=== PATIENT | female | born 1955 | race Caucasian/White ===

== ENCOUNTER 2018-06-02 20:55 | Observation (INO) ==
--- NOTE | 2018-06-02 21:46 | ED ---
[facility] General Chief complaint: Abdominal Pain Stated complaint: N/V/Abd pain Time Seen by Provider: 06/02/18 21:31 Source: patient Mode of arrival: ambulatory Limitations: no limitations History of Present Illness HPI narrative: 63yo F with no no significant PMH presents to the ED with c/o epigastric abdominal around 4pm today. Said she was at a birthday republic[employer] and was eating junk food. Associated with nausea and vomiting. Pain is intermittent, nonradiating and sharp. Denies any fever, chest pain, sob, diarrhea, dysuria, hematuria, focal weakness or numbness. Related Data Home Medications Medication Instructions Recorded Confirmed No Known Home Medications 06/02/18 06/02/18 Allergies Allergy/AdvReac Type Severity Reaction Status Date / Time No Known Allergies Allergy Unverified 06/02/18 21:16 Review of Systems ROS Unobtainable All other systems reviewed negative except as stated in HPI [facility] Medical History Medical History Patient denies medical problems (Acute) GERD (gastroesophageal reflux disease) (Acute) Social History Social History Second Hand Smoke Exposure: Yes Smoking Status: Current some day smoker Tobacco Type: Cigarettes How Often Do You Have a Drink Containing Alcohol: 2 to 4 times a month Recent Travel in [facility] within the Last 8 Weeks: No Recent Out of Country Travel within the Last 8 Weeks: No Immunization History Tetanus Immunization: Unsure Hx Influenza Vaccine This Season: No Exam Narrative Exam Narrative: GENERAL: 63yo F in mild distress. SKIN: Focused skin assessment warm/dry. HEAD: Atraumatic. Normocephalic. EYES: Pupils equal and round. No scleral icterus. No injection or drainage. ENT: No nasal bleeding or discharge. Mucous membranes pink and moist. NECK: Trachea midline. No JVD. CARDIOVASCULAR: Regular rate and rhythm. No murmur appreciated. RESPIRATORY: No accessory muscle use. Clear to auscultation. Breath sounds equal bilaterally. GASTROINTESTINAL: Abdomen soft, +TTP epigastric region. No rebound tenderness or guarding. MUSCULOSKELETAL: No obvious deformities. No clubbing. No cyanosis. No edema. NEUROLOGICAL: Awake and alert. No obvious cranial nerve deficits. Motor grossly within normal limits. Normal speech. PSYCHIATRIC: Appropriate mood and affect; insight and judgment normal. Course Initial Documented Vital Signs Temperature 97.8 F 06/02/18 21:16 Pulse Rate 67 06/02/18 21:16 Respiratory Rate 16 06/02/18 21:16 Blood Pressure 109/76 06/02/18 21:16 Pulse Oximetry 98 06/02/18 21:16 Last Documented Vital Signs Temperature 97.8 F 06/02/18 21:16 Pulse Rate 78 06/03/18 01:06 Respiratory Rate 16 06/03/18 01:06 Blood Pressure 98/59 L 06/03/18 01:06 Pulse Oximetry 99 06/03/18 01:06 Medical Decision Making MDM Narrative Medical decision making narrative: 63yo F with epigastric abdominal pain and vomiting that started this afternoon. Pain is localized in epigastric region. Protonix did not help so pt given morphine which helped with pain. Labs reviewed, WBC 11.7. AST/ALT elevated at 289/146. Normal bilirubin. CT a/p showed moderate severity diffuse intrahepatic and extrahepatic biliary ductal dilatation. No mass identified. No calcified gallstones. Common duct is diffusely prominent measuring 11mm proximally and distally. Gallbladder is collapse. Pt will need GI consult. Discussed with Dr. Garrett and accepted to her service. Differential Diagnosis Differential Diagnosis: Gastritis vs. pancreatitis vs. peptic ulcer disease vs. atypical ACS Lab Data Result diagrams: 06/02/18 21:40 06/02/18 21:40 Lab Results 06/02/18 06/02/18 Range/Units 21:40 21:40 CBC w Diff Auto diff final WBC 11.7 H (4.0-11.0) th/mm3 RBC 4.73 (4.00-5.30) mil/mm3 Hgb 14.4 (11.6-15.3) gm/dL Hct 45.4 (35.0-46.0) % MCV 95.9 (80.0-100.0) fL MCH 30.4 (27.0-34.0) pg MCHC 31.7 L (32.0-36.0) % RDW 12.6 (11.6-17.2) % Plt Count 158 (150-450) th/mm3 MPV 10.9 (7.0-11.0) fL Neut % (Auto) 68.2 (16.0-70.0) % Lymph % (Auto) 16.1 (9.0-44.0) % [place] % (Auto) 11.6 H (0.0-8.0) % Eos % (Auto) 1.5 (0.0-4.0) % Baso % (Auto) 2.6 H (0.0-2.0) % Neut # (Auto) 7.9 H (1.8-7.7) th/mm3 Lymph # (Auto) 1.9 (1.0-4.8) th/mm3 [place] # (Auto) 1.4 H (0.0-0.9) th/mm3 Eos # (Auto) 0.2 (0.0-0.4) th/mm3 Baso # (Auto) 0.3 H (0.0-0.2) th/mm3 WBC Differential . Differential Comment . Sodium 142 (136-145) meq/L Potassium 3.5 (3.5-5.1) meq/L Chloride 106 (98-107) meq/L Carbon Dioxide 27.7 (21.0-32.0) meq/L Anion Gap 8 (5-15) meq/L BUN 16 (7-18) mg/dL Creatinine 0.76 (0.50-1.00) mg/dL Estimated GFR 77 L (>89) mL/min Random Glucose 150 H (74-106) mg/dL Calcium 8.7 (8.5-10.1) mg/dL Total Bilirubin 0.5 (0.2-1.0) mg/dL AST 289 H (15-37) U/L ALT 146 H (10-53) U/L Alkaline Phosphatase 85 (45-117) U/L Total Protein 7.4 (6.4-8.2) g/dL Albumin 3.7 (3.4-5.0) g/dL Lipase 199 (73-393) U/L Imaging Data Radiologist's impression: ITS Impressions Abdomen/Pelvis CT 06/02/18 22:38 CONCLUSION: 1. Moderate severity diffuse intrahepatic and extrahepatic biliary ductal dilatation. No mass identified. No calcified gallstones identified. 2. Mild hepatic steatosis. 3. Lumbar spine facet arthrosis. ECG Data EKG Prior to Arrival: No Attestation: I personally reviewed and interpreted this ECG as follows: Interpretation: NSR 65bpm. Normal axis. No ST segment elevation or depression. Discharge Plan Discharge Disposition Patient Disposition: 30 Still Patient Discharge Condition Condition: Stable Physicians Team ED Provider: Mary Frost Primary Care Provider: Primary Care Chad,No Attending Provider: Marilyn Garrett Other Providers: Airam Peñaloza Status ED Status: Admitted Observation Patient
[2018-06-02 22:12] LABS: Baso # (Auto) 0.3 th/mm3 (0.0-0.2); Baso % (Auto) 2.6 % (0.0-2.0); Eos # (Auto) 0.2 th/mm3 (0.0-0.4); Eos % (Auto) 1.5 % (0.0-4.0); Hematocrit 45.4 % (35.0-46.0); Hemoglobin 14.4 gm/dL (11.6-15.3); Lymph # (Auto) 1.9 th/mm3 (1.0-4.8); Lymph % (Auto) 16.1 % (9.0-44.0); Mean Corpuscular HGB Conc 31.7 % (32.0-36.0); Mean Corpuscular Hemoglobin 30.4 pg (27.0-34.0); Mean Corpuscular Volume 95.9 fL (80.0-100.0); Mean Platelet Volume 10.9 fL (7.0-11.0); Mono # (Auto) 1.4 th/mm3 (0.0-0.9); Mono % (Auto) 11.6 % (0.0-8.0); Neut # (Auto) 7.9 th/mm3 (1.8-7.7); Neut % (Auto) 68.2 % (16.0-70.0); Platelet Count 158 th/mm3 (150-450); Red Blood Count 4.73 mil/mm3 (4.00-5.30); Red Cell Distribution Width 12.6 % (11.6-17.2); White Blood Count 11.7 th/mm3 (4.0-11.0)
[2018-06-02 22:16] LABS: Chloride 106 meq/L (98-107); Potassium 3.5 meq/L (3.5-5.1); Sodium 142 meq/L (136-145)
[2018-06-02 22:19] LABS: Albumin 3.7 g/dL (3.4-5.0); Calcium 8.7 mg/dL (8.5-10.1); Glucose,Random 150 mg/dL (74-106)
[2018-06-02 22:20] LABS: Anion Gap 8 meq/L (5-15); Blood Urea Nitrogen 16 mg/dL (7-18); Carbon Dioxide 27.7 meq/L (21.0-32.0); Lipase 199 U/L (73-393)
[2018-06-02 22:23] LABS: Alanine Aminotransferase 146 U/L (10-53); Aspartate Aminotransferase 289 U/L (15-37); Glomerular Filtration Rate 77 mL/min (>89)
[2018-06-02 22:24] LABS: Total Protein 7.4 g/dL (6.4-8.2)
[2018-06-02 22:25] LABS: Alkaline Phosphatase 85 U/L (45-117)
[2018-06-02] MEDS ORDERED: Morphine Inj 4 MG/ML Vial IV.PUSH ONE (22:38)
--- NOTE | 2018-06-02 23:04 | ECG ---
Date Performed: 06/02/2018 Time Performed: 21:45:39 PTAGE: 63 years EKG: Sinus rhythm NORMAL ECG PREVIOUS TRACING : 04/23/2001 14.37 No significant change from previous tracing noted. DOCTOR: Dave Cast Interpretating Date/Time 06/02/2018 23:03:09
--- NOTE | 2018-06-02 23:43 | CT ---
EXAM DATE: 06/02/2018 11:06 PM EDT AGE/SEX: 63 years / Female INDICATIONS: Epigastric pain with nausea and vomiting. CLINICAL DATA: This is the patient's initial encounter. Patient reports that signs and symptoms have been present for 1 day and indicates a pain score of 3/10. MEDICAL/SURGICAL HISTORY: Gastroesophageal reflux disease. None. ORAL CONTRAST: No oral contrast ingested. RADIATION DOSE: 6.90 CTDI (mGy) COMPARISON: No prior exams available for comparison. TECHNIQUE: Multiple contiguous axial images were obtained through the abdomen and pelvis following b olus infusion of 86 ml Omnipaque 350 (iohexol) nonionic water-soluble contrast as a single exam dos e. No oral contrast ingested. Using automated exposure control and adjustment of the mA and/or kV ac cording to patient size, radiation dose was kept as low as reasonably achievable to obtain optimal di agnostic quality images. DICOM format image data is available electronically for review and comparis on. FINDINGS: Lower Lungs: The visualized lower lungs are clear. Liver: Evidence of mild hepatic steatosis. No focal mass identified. Mild diffuse intrahepatic biliar y ductal dilatation. Common duct is diffusely prominent measuring 11 mm proximally and distally. Gall bladder is collapsed. Spleen: Homogeneous density without enlargement. Pancreas: Unremarkable without mass or calcification. Kidneys: Normal in size and shape. No evidence of mass or hydronephrosis. Adrenal Glands: Unremarkable. Aorta: The aorta and proximal iliac vessels are grossly unremarkable without aneurysmal dilation. Bowel/Mesentery: No evidence of bowel dilatation. No free air or free fluid. Appendix within normal limits. Abdominal Wall: Intact. Retroperitoneum: No evidence of adenopathy in the retrocrural, para-aortic, or deep pelvic regions. Bladder: Contours are smooth. Reproductive Organs: No abnormal masses or calcifications seen. Inguinal: The inguinal region is unremarkable without evidence of adenopathy. Bony Structures: Prominent facet arthrosis of the lower lumbar spine. CONCLUSION: 1. Moderate severity diffuse intrahepatic and extrahepatic biliary ductal dilatation. No mass identi fied. No calcified gallstones identified. 2. Mild hepatic steatosis. 3. Lumbar spine facet arthrosis. Electronically signed by: Yahir Romano MD 06/02/2018 11:41 PM EDT
[2018-06-03] MEDS ORDERED: Bisacodyl 10 MG Supp RECTAL PRN (00:06)
[2018-06-03] MEDS ORDERED: Temazepam 15 MG Capsule PO PRN (00:06)
[2018-06-03] MEDS ORDERED: Morphine Sulfate Inj 2 MG/ML Vial IV.PUSH PRN (00:06)
[2018-06-03] MEDS: Sod Chloride 0.9% Inj 1,000 ML IV.CONT SCH ×2 (06:34→22:13)
[2018-06-03 06:58] LABS: Bilirubin,Urine Negative (Negative); Clarity,Urine Clear (Clear); Color,Urine Yellow (Yellw/Straw); Glucose,Urine (UA) Negative (Negative); Leukocyte Esterase,Urine Negative (Negative); Nitrite,Urine Negative (Negative); PH,Urine 8.5 (5.0-8.5); Specific Gravity,Urine Less/Equal 1.005 (1.002-1.035); Urobilinogen,Urine 0.2 mg/dL (Less than 2)
[2018-06-03 07:20] LABS: RBC,Urine 0-3 /hpf (0-3); Squamous Epithelial Cell,Urine 0-5 /hpf (0-5); WBC,Urine 0-5 /hpf (0-5)
[2018-06-03] MEDS: Senna/Docusate Sodium 8.6/50 MG Tablet PO SCH ×2 (11:59→22:13)
--- NOTE | 2018-06-03 12:02 | P.HP ---
History of Present Illness Primary Care Physician: No Primary Care Physician Chief Complaint: Abdominal pain and nausea vomiting History of Present Illness: 63-year-old female with no significant past medical history who presented to the emergency department because acute onset of abdominal pain with intractable nausea vomiting. Patient states that she was at a birthday republican and she ate some potato chips and shortly after that she started developing epigastric abdominal pain which did not radiate into her back, flank or lower abdomen. She started developing intractable nausea and vomiting until she had dry heaves. Because she did not improve she came to emergency department for evaluation. Patient had CT scan done of her abdomen which did show severely intra-hepatic and extrahepatic biliary ductal dilatation, no gallstones are identified. Because of those reasons is recommended by the ER physician of the patient be observed in the hospital for further evaluation and management. Patient states that her nausea and vomiting completely resolved by 9 PM last night. Patient is no longer painful. Patient denied any hematemesis , diarrhea, constipation, melena, hematochezia. - Diagnosis (1) Abdominal pain Review of Systems All other systems reviewed negative except as stated in HPI Gastrointestinal: Reports abdominal pain, Reports nausea, Reports vomiting PMFSH - History History Provided By: Patient - Medical History Medical History: Medical History (Last Updated 06/03/18 @ 11:57 by REYNALDO Easley) No significant past medical history - Family History Family History: Family History (Last Updated 06/03/18 @ 11:59 by REYNALDO Easley) Other Family history non-contributory - Tobacco History Second Hand Smoke Exposure: Yes Tobacco Use In Past 30 Days: Yes Smoking Status: Current some day smoker Tobacco Type: Cigarettes - Alcohol History How Often Do You Have a Drink Containing Alcohol: 2 to 3 times a week - Substance Use History Substance History: No History of Abuse - Travel History Recent Travel in the [place] Within the Last 8 Weeks: No Recent Travel Out of the Country Within the Last 8 Weeks: No - Immunization History Tetanus Immunization: Unsure Hx Influenza Vaccine This Season: No Medications and Allergies Active Medications: Active Medications Al Hydroxide/Mg Hydroxide (Milk Of Magnlinnette Liq) 30 ml PO Q12H PRN PRN Reason: Mild Constipation Bisacodyl (Dulcolax Supp) 10 mg RECTAL DAILY PRN PRN Reason: SEVERE CONSITIPATION Sodium Chloride (Ns Inj) 1,000 mls @ 70 mls/hr IV.CONT .[id number] [facility] Last Admin: 06/03/18 06:34 Dose: 70 mls/hr Lactulose (Lactulose Liq) 30 ml PO DAILY PRN PRN Reason: SEVERE CONSITIPATION Morphine Sulfate (Morphine Inj) 2 mg IV.PUSH Q3H PRN PRN Reason: pain 6-10 Ondansetron HCl (Zofran Inj) 4 mg IV.PUSH Q6H PRN PRN Reason: NAUSEA OR VOMITING Senna/Docusate Sodium (Kimberly-Colace) 1 tab PO BID [facility] Sennosides (Senokot) 17.2 mg PO Q12H PRN PRN Reason: Moderate Constipation Sodium Chloride (Ns Flush) 2 ml IV.FLUSH PRN PRN PRN Reason: FLUSH AFTER USING IV ACCESS Temazepam (Restoril) 15 mg PO HS PRN PRN Reason: INSOMNIA Allergies Allergy/AdvReac Type Severity Reaction Status Date / Time No Known Allergies Allergy Verified 06/03/18 11:04 Home Medications Medication Instructions Recorded Confirmed Type No Known Home Medications 06/02/18 06/02/18 History Exam Vital signs: Vital Signs 06/02/18 21:16 06/02/18 21:19 06/03/18 00:04 Temperature 97.8 F Pulse Rate 67 82 Respiratory Rate 16 16 16 Blood Pressure 109/76 123/70 Pulse Oximetry 98 99 06/03/18 00:07 06/03/18 01:06 06/03/18 06:42 Temperature Pulse Rate 74 78 Respiratory Rate 16 16 Blood Pressure 98/59 L 91/59 L Pulse Oximetry 99 06/03/18 07:03 Temperature 97.8 F Pulse Rate 56 L Respiratory Rate 18 Blood Pressure 101/61 Pulse Oximetry 96 Intake & Output 06/02/18 06/03/18 06/03/18 18:59 06:59 18:59 Weight 55.2 kg 54.885 kg Other: Date of Last Bowel Movement 06/02/18 Weight On Admission 54.885 kg Narrative: GENERAL: Well-developed, well-nourished, in no acute distress. alert and orientated HEENT: Head is normocephalic without any lesions or masses noted. Facial features are symmetric. Eyes: Pupils equal round reactive to light. Extraocular muscles are intact. Conjunctivae were clear. Oropharyngeal: Pharynx without any erythema edema. Tongue is midline without deviation. Buccal mucosa is moist without any masses or lesions NECK: Supple without any masses. Trachea midline no deviation. No JVD, no bruits are appreciated CARDIAC: Regular rhythm, regular rate. S1/S2 are heard. No murmurs gallops or rubs. LUNGS: Clear to auscultation bilaterally. No wheeze, rhonchi or rales. No use of accessory muscles on inspiration or expiration. ABDOMEN: Soft, nontender. Nondistended. Bowel sounds heard in all 4 quadrants. No organomegaly or masses. Negative rebound, negative guarding EXTREMITIES: No edema, pulses are equal bilaterally. No cyanosis or clubbing NEUROLOGY: Mood and affect appear appropriate. Cranial nerves II through XII grossly intact. Muscle strength 5/5 in upper and lower extremities bilaterally. Deep tendon reflexes are 2+ in upper and lower extremities bilaterally. Results - Labs CBC & Chem 7: 06/02/18 21:40 06/02/18 21:40 Labs: Laboratory Results - last 24 hr 06/02/18 06/02/18 06/03/18 21:40 21:40 06:30 CBC w Diff Auto diff final WBC 11.7 H RBC 4.73 Hgb 14.4 Hct 45.4 MCV 95.9 MCH 30.4 MCHC 31.7 L RDW 12.6 Plt Count 158 MPV 10.9 Neut % (Auto) 68.2 Lymph % (Auto) 16.1 [place] % (Auto) 11.6 H Eos % (Auto) 1.5 Baso % (Auto) 2.6 H Neut # (Auto) 7.9 H Lymph # (Auto) 1.9 [place] # (Auto) 1.4 H Eos # (Auto) 0.2 Baso # (Auto) 0.3 H WBC Differential . Differential Comment . Sodium 142 Potassium 3.5 Chloride 106 Carbon Dioxide 27.7 Anion Gap 8 BUN 16 Creatinine 0.76 Estimated GFR 77 L Random Glucose 150 H Calcium 8.7 Total Bilirubin 0.5 AST 289 H ALT 146 H Alkaline Phosphatase 85 Total Protein 7.4 Albumin 3.7 Lipase 199 Ur Collection Type Clean catch Urine Color Yellow Urine Clarity Clear Urine pH 8.5 Ur Specific [place] Less/equal 1.005 Urine Protein 30 H Urine Glucose (UA) Negative Urine Ketones Negative Urine Occult Blood Trace Urine Nitrate Negative Urine Bilirubin Negative Urine Urobilinogen 0.2 Ur Leukocyte Esterase Negative Urine RBC 0-3 Urine WBC 0-5 Ur Squamous Epith Cells 0-5 Micro UA Comment Culture not ind Urine Culture Comments Culture not ind - Imaging Impressions Abdomen/Pelvis CT 06/02/18 22:38 CONCLUSION: 1. Moderate severity diffuse intrahepatic and extrahepatic biliary ductal dilatation. No mass identified. No calcified gallstones identified. 2. Mild hepatic steatosis. 3. Lumbar spine facet arthrosis. Caprini VTE Risk Assessment Caprini VTE Risk Assessment: No/Low Risk (score <= 1) Caprini Risk Assessment Model: Point Value = 1 Point Value = 2 Point Value = 3 Point Value = 5 Age 41-60 Minor surgery BMI > 25 kg/m2 Swollen legs Varicose veins or History of unexplained or recurrent spontaneous Oral contraceptives or hormone replacement Sepsis (< 1 month) Serious lung disease, including pneumonia (< 1 month) Abnormal pulmonary function Acute myocardial infarction Congestive heart failure (< 1 month) History of inflammatory bowel disease Medical patient at bed rest Age 61-74 Arthroscopic surgery Major open surgery (> 45 min) Laparoscopic surgery (> 45 min) Malignancy Confined to bed (> 72 hours) Immobilizing plaster cast Central venous access Age >= 75 History of VTE Family history of VTE Factor V Leiden Prothrombin [id number] Lupus anticoagulant Anticardiolipin antibodies Elevated serum homocysteine Heparin-induced thrombocytopenia Other congenital or acquired thrombophilia Stroke (< 1 month) Elective arthroplasty Hip, pelvis, or leg fracture Acute spinal cord injury (< 1 month) Prophylaxis Regimen: Total Risk Factor Score Risk Level Prophylaxis Regimen 0-1 Low Early ambulation 2 Moderate Order ONE of the following: *Sequential Compression Device (SCD) *Heparin 5000 units SQ BID 3-4 Higher Order ONE of the following medications: *Heparin 5000 units SQ TID *Enoxaparin/Lovenox 40 mg SQ daily (WT < 150 kg, CrCl > 30 mL/min) *Enoxaparin/Lovenox 30 mg SQ daily (WT < 150 kg, CrCl > 10-29 mL/min) *Enoxaparin/Lovenox 30 mg SQ BID (WT < 150 kg, CrCl > 30 mL/min) AND/OR *Sequential Compression Device (SCD) 5 or more Highest Order ONE of the following medications: *Heparin 5000 units SQ TID (Preferred with Epidurals) *Enoxaparin/Lovenox 40 mg SQ daily (WT < 150 kg, CrCl > 30 mL/min) *Enoxaparin/Lovenox 30 mg SQ daily (WT < 150 kg, CrCl > 10-29 mL/min) *Enoxaparin/Lovenox 30 mg SQ BID (WT < 150 kg, CrCl > 30 mL/min) AND *Sequential Compression Device (SCD) Assessment and Plan - Assessment (1) Abdominal pain Code(s): R10.9 - Unspecified abdominal pain Status: Acute Plan: -Patient with acute onset abdominal pain with intractable nausea vomiting which have resolved at this time -CT scan does show significant intra-and extrahepatic ductal dilatation -MRCP has been performed and indicates intrahepatic biliary duct dilatation. Common bile duct measures 7 mm with fusiform narrowing at the ampulla -GI consulted for further recommendations, discussed with home improvement installer who indicated that patient will require ERCP, and requested HIDA scan to be performed -continue IV fluids -Clear liquid diet at this time, n.p.o. after midnight -Antiemetics as needed - Plan DVT prevention -Low risk, early ambulation
--- NOTE | 2018-06-03 12:10 | MR ---
EXAM DATE: 06/03/2018 9:53 AM EDT AGE/SEX: 63 years / Female INDICATIONS: Abdominal pain. Mildly dilated ducts on CT. CLINICAL DATA: This is the patient's initial encounter. Patient reports that signs and symptoms have been present for 1 day and indicates a pain score of 3/10. MEDICAL/SURGICAL HISTORY: None. Tubal ligation. COMPARISON: [facility], CT ABDOMEN & PELVIS W CONTRAST, 06/02/2018. . TECHNIQUE: Multiplanar, multisequence images of the abdomen were obtained without contrast including dedicated cholangiographic images. FINDINGS: Liver: The liver is homogeneous and normal in signal intensity with no focal defects. Intrahepatic Bile Ducts: There is mild intrahepatic biliary ductal dilatation. Common Bile Duct: The common bile duct measures 7 mm in the midportion. More distally there is fusif orm narrowing measuring 2 to 3 mm. No filling defects or obstructing lesions are identified. Gallbladder: The gallbladder is normal with no evidence for cholelithiasis, gallbladder wall thicken ing, or pericholecystic fluid. Pancreas: The pancreas appears normal in signal with no focal parenchymal abnormalities. The pancrea tic duct is normal in caliber with no filling defects, or obstructing lesions identified. CONCLUSION: 1. Mild intrahepatic biliary duct dilatation. 2. Common bile duct measures 7 mm in the midportion with fusiform narrowing at the ampulla. Electronically signed by: Jasper Poole MD 06/03/2018 12:09 PM EDT
--- NOTE | 2018-06-03 22:21 | MB ---
cc: Airam Peñaloza MD DATE: 06/03/2018 REFERRING PHYSICIAN: Dr. Chaney REASON FOR CONSULTATION: Abdominal pain, nausea and vomiting, abnormal liver enzymes. HISTORY OF PRESENT ILLNESS: Mrs. Cai is a 63-year-old lady who has no major medical problems, who came to the emergency room with complaints of abdominal pain, nausea and vomiting. She was at a birthday republican and she had some potato chips. Shortly after that, she started developing symptoms. She did have some diarrhea too. Never had this type of problem before. She has never been to a physician for similar reasons. She has not seen a doctor in a long time. There is no melena, hematemesis, hematochezia, weight loss or weight gain. Her CT abdomen and pelvis showed some dilatation of the biliary tree. PAST MEDICAL HISTORY: None. FAMILY HISTORY: None. SOCIAL HISTORY: She smokes daily. Denies any drug use. Stopped drinking some time ago, occasionally 2-3 times a week. MEDICATIONS AT HOME: None. MEDICATIONS IN THE HOSPITAL: Lactulose, morphine, Zofran, Restoril. ALLERGIES: NO KNOWN ALLERGIES. REVIEW OF SYSTEMS: CONSTITUTIONAL: She denies any fever, chills, weight loss or weight gain. ENT: No alteration of baseline hearing or visual activity. PULMONARY: Denies any chest pain, shortness of breath. GASTROINTESTINAL: As above. GENITOURINARY: Denies dysuria, hematuria. HEMATOLOGIC: No history of anemia or bleeding disorder. SKIN: No alteration of baseline skin lesion. NEUROLOGIC: No history of TIA or CVA kind of symptoms. PHYSICAL EXAMINATION: GENERAL: She is sitting comfortably in bed in no acute distress. VITAL SIGNS: Heart rate is 56, temperature is 97.9, blood pressure 99/54. SKIN: PERRLA. NECK: No JVD. No lymphadenopathy. CHEST: Clear to auscultation and palpation. CARDIOVASCULAR: S1, S2. No murmur. ABDOMEN: Soft, nontender. Bowel sounds are present. CENTRAL NERVOUS SYSTEM: Awake, alert, oriented x 3. No focal signs identified. LABORATORY DATA: Her white count 11.7, hemoglobin 14, platelets 158. Her chemistry suggestive of glucose 150, total bilirubin 0.5, AST 289, ALT 146. IMAGING: The patient also had CT abdomen and pelvis which was suggestive of dilated biliary tree, intrahepatic and extrahepatic biliary dilatation. No mass identified. Mild hepatic steatosis. The patient had an MRCP done too, which was suggestive of mild intrahepatic biliary ductal dilatation. Common bile duct measures 7 mm in the mid portion, with fusiform narrowing at the ampulla. HIDA scan was ordered and it is in progress. IMPRESSION: Abdominal pain, nausea and vomiting. Dilatation of the biliary tree, possible biliary stricture versus passed common bile duct stone, dilated biliary tree, with questionable stricture in the distal common bile duct. No stone was seen so far. Elevated liver enzymes, most likely secondary to the biliary pathology. RECOMMENDATIONS: Clear liquid diet. ERCP in the morning. HIDA scan. Close monitoring of the liver enzymes and CBC. Risks and benefits were discussed with the patient and she is agreeing with it. I would like to thank Dr. Chaney for referring her to our office for consultation. MD SID Meyer/SUPA , 09:42 PM , 10:20 PM
[2018-06-04] MEDS ORDERED: Chlorhexidine Gluconate 2% 1 Pack (2 Cloths) TOPICAL SCH (00:30)
[2018-06-04] MEDS ORDERED: Metoprolol Tartrate 25 MG Tablet PO SCH (00:30)
[2018-06-04] MEDS ORDERED: Sodium Chlor 0.9% Inj 500 ML IV.SIG SCH (01:00)
[2018-06-04 08:49] LABS: Baso % (Auto) 0.7 % (0.0-2.0); Eos # (Auto) 0.2 th/mm3 (0.0-0.4); Eos % (Auto) 4.2 % (0.0-4.0); Hematocrit 40.3 % (35.0-46.0); Hemoglobin 13.5 gm/dL (11.6-15.3); Lymph % (Auto) 37.6 % (9.0-44.0); Mean Corpuscular HGB Conc 33.5 % (32.0-36.0); Mean Corpuscular Hemoglobin 31.8 pg (27.0-34.0); Mean Corpuscular Volume 95.1 fL (80.0-100.0); Mean Platelet Volume 10.5 fL (7.0-11.0); Mono # (Auto) 0.6 th/mm3 (0.0-0.9); Mono % (Auto) 11.5 % (0.0-8.0); Neut # (Auto) 2.4 th/mm3 (1.8-7.7); Platelet Count 123 th/mm3 (150-450); Red Blood Count 4.23 mil/mm3 (4.00-5.30); Red Cell Distribution Width 13.3 % (11.6-17.2); White Blood Count 5.3 th/mm3 (4.0-11.0)
[2018-06-04 09:01] LABS: Anion Gap 11 meq/L (5-15); Blood Urea Nitrogen 17 mg/dL (7-18); Calcium 8.3 mg/dL (8.5-10.1); Carbon Dioxide 24.1 meq/L (21.0-32.0); Chloride 109 meq/L (98-107); Glomerular Filtration Rate Greater Than 89 mL/min (>89); Glucose,Random 87 mg/dL (74-106); Potassium 3.4 meq/L (3.5-5.1); Sodium 144 meq/L (136-145)
[2018-06-04 09:03] LABS: Alanine Aminotransferase 110 U/L (10-53); Aspartate Aminotransferase 62 U/L (15-37)
[2018-06-04 09:06] LABS: Alkaline Phosphatase 70 U/L (45-117); Total Protein 6.1 g/dL (6.4-8.2)
[2018-06-04] MEDS: Senna/Docusate Sodium 8.6/50 MG Tablet PO SCH ×2 (09:21→21:59)
[2018-06-04] MEDS: Sod Chloride 0.9% Inj 1,000 ML IV.CONT SCH (09:21)
--- NOTE | 2018-06-04 11:40 | GIPROC ---
[facility] [address] [facility]. [facility], [address] ERCP PROCEDURE REPORT EXAM DATE: 06/04/2018 PATIENT NAME: Therese Cai MR #: [id number] BIRTHDATE: 1955 ATTENDING: Jeane Mcclure MD ORDER #: [id number] ENGINEERING TECHNICAL SPECIALIST: Ron Barriga and Laura Templeton STATUS: inpatient INDICATIONS: The patient is a 63 yr old female here for an ERCP due to PROCEDURE PERFORMED: ERCP MEDICATIONS: None and Per Anesthesia. CONSENT: The patient understands the risks and benefits of the procedure and understands that these risks include, but are not limited to: sedation, allergic reaction, infection, perforation and/or bleeding. Alternative means of evaluation and treatment include, among others: physical exam, x-rays, and/or surgical intervention. The patient elects to proceed with this endoscopic procedure. medical equipment was checked for proper function. Hand hygiene and appropriate measures for infection prevention was taken. After the risks, benefits and alternatives of the procedure were thoroughly explained, Informed was verified, confirmed and timeout was successfully executed by the treatment team. With the patient in left semi-prone position, medications were administered intravenously.The Pentax [id number] was passed from the mouth into the esophagus and further advanced from the esophagus into the stomach. From stomach scope was directed to the second portion of the duodenum. Major papilla was aligned with the duodenoscope. The scope position was confirmed fluoroscopically. Rest of the findings/therapeutics are given below. The scope was then completely withdrawn from the patient and the procedure completed. The pulse, BP, and O2 saturation were monitored and documented by the physician and the nursing staff throughout the entire procedure. The patient was cared for as planned according to standard protocol. The patient was then discharged to recovery in stable condition and with appropriate post procedure care. The ampulla was located the second portion of the duodenum. The ampulla appeared normal. Failed free cannulation. The ampulla was located the second portion of the duodenum. The ampulla appeared normal. Failed free cannulation of the CBD. ADVERSE EVENT: There were no complications. IMPRESSIONS: 1. Normal appearing ampulla 2. Failed free cannulation RECOMMENDATIONS: 1. Liver enzymes 2. Combined procedure if liver enzymes continue to increase. REPEAT EXAM: As needed Jeane Mcclure MD eSigned: Jeane Mcclure MD 06/04/2018 11:39 AM cc:
[2018-06-04] MEDS ORDERED: Morphine Inj 4 MG/ML Vial IV.PUSH PRN (12:45)
[2018-06-04] MEDS ORDERED: HYDROmorphone PF Inj 0.5 MG/0.5 ML Syringe IV.PUSH PRN (14:23)
[2018-06-04] MEDS ORDERED: Promethazine 25 MG Supp RECTAL PRN (14:31)
[2018-06-04] MEDS ORDERED: Naloxone Inj 0.4 MG/ML Vial IV.PUSH PRN (14:50)
--- NOTE | 2018-06-04 14:55 | P.PNIM ---
Subjective Interval history: Follow up abdominal pain, nausea and vomiting. Patient and examined, lying in bed status post ERCP. Patient is in severe pain to right upper quadrant, pain radiates to her left upper quadrant. Worse with movement. States her pain is worse after procedure. She is nauseous and intermittently vomiting. Pain medications adjusted. Gallbladder US ordered. Unable to do HIDA 2/2 having Morphine. Will attempt to better control pain. Physical Exam Vital signs: Vital Signs 06/03/18 16:00 06/03/18 20:25 06/04/18 00:00 Temperature 97.9 F 98.6 F 98.2 F Pulse Rate 62 89 71 Respiratory Rate 18 16 16 Blood Pressure 99/54 L 119/73 117/54 L Pulse Oximetry 99 97 94 L 06/04/18 08:00 06/04/18 11:43 06/04/18 12:21 Temperature 98.2 F 98.2 F 97.9 F Pulse Rate 62 60 67 Respiratory Rate 18 20 19 Blood Pressure 130/69 144/63 H 177/84 H Pulse Oximetry 96 99 99 Intake & Output 06/03/18 06/04/18 06/04/18 18:59 06:59 18:59 Intake Total 360 / 360 1120 / 1120 1000 / 1000 Balance 360 / 360 1120 / 1120 1000 / 1000 Weight 54.885 kg Intake: IV 1000 / 1000 1000 / 1000 NS Inj 1,000 ML @ 70 mls/hr IV. 1000 / 1000 1000 / 1000 CONT .[id number] [facility] Rx#: [id number] Oral 360 / 360 120 / 120 Other: # Voids 3 1 Date of Last Bowel Movement 06/02/18 # Bowel Movements 0 0 Weight On Admission 54.885 kg - Constitutional moderate distress - Routine HEENT Exam Head: Present: normocephalic Eye: Present: EOMI, PERRL ENT: Present: mucous membranes moist - Routine Neck Exam Present: supple - Routine Cardiovascular Exam Present: RRR - Routine Abdominal Exam Present: soft, tenderness (right upper quadrant), guarding - Routine Skin Exam Present: intact - Routine Neurological Exam Present: alert, oriented X3 - Detailed Neurological Exam: Coma Scale Eye Opening: Spontaneous Verbal Response: Oriented Motor Response: Obey commands Daniele Coma Scale Total: 15 Results - Labs CBC & Chem 7: 06/04/18 07:31 06/04/18 07:31 Laboratory Results - last 24 hr 06/04/1818 07:31 07:31 WBC 5.3 RBC 4.23 Hgb 13.5 Hct 40.3 MCV 95.1 MCH 31.8 MCHC 33.5 RDW 13.3 Plt Count 123 L MPV 10.5 Neut % (Auto) 46.0 Lymph % (Auto) 37.6 Crenshaw % (Auto) 11.5 H Eos % (Auto) 4.2 H Baso % (Auto) 0.7 Neut # (Auto) 2.4 Lymph # (Auto) 2.0 Crenshaw # (Auto) 0.6 Eos # (Auto) 0.2 Baso # (Auto) 0.0 WBC Differential . Differential Comment Auto diff final Sodium 144 Potassium 3.4 L Chloride 109 H Carbon Dioxide 24.1 Anion Gap 11 BUN 17 Creatinine 0.60 Estimated GFR Greater than 89 Random Glucose 87 Calcium 8.3 L Total Bilirubin 0.5 AST 62 H ALT 110 H Alkaline Phosphatase 70 Total Protein 6.1 L D Albumin 3.0 L D Assessment and Plan - Assessment (1) Abdominal pain Code(s): R10.9 - Unspecified abdominal pain Status: Acute Plan: Patient with acute onset abdominal pain with intractable nausea vomiting: -CT scan does show significant intra-and extrahepatic ductal dilatation -MRCP has been performed and indicates intrahepatic biliary duct dilatation. Common bile duct measures 7 mm with fusiform narrowing at the ampulla -GI consulted for further recommendations, performed ERCP today, unable to cannulate ampulla. For now observe with pain management. HIDA scan ordered, unable to perform secondary to IV pain medication. Gallbladder US also ordered and pending. -Continue IV fluids -Clear liquid diet at this time, n.p.o. after midnight for US. -Antiemetics as needed. - Add Dilaudid to regimen. Assess response. - Supportive care.
[2018-06-04] MEDS: HYDROmorphone PF Inj 2 MG/ML Vial IV.PUSH PRN ×2 (15:00→18:50)
--- NOTE | 2018-06-04 23:27 | US ---
EXAM DATE: 06/04/2018 9:36 PM EDT AGE/SEX: 63 years / Female INDICATIONS: Gallstones. CLINICAL DATA: This is the patient's initial encounter. Patient reports that signs and/or symptoms h ave been present for 1 week and indicates a pain score of 3/10. MEDICAL/SURGICAL HISTORY: . Abdominal pain. None. COMPARISON: [facility], MRCP W/O CONTRAST, 06/03/2018. . MEASUREMENTS: Liver:__ 11.6 cm. Common Bile Duct:__ 10mm. FINDINGS: Liver: Normal echotexture without focal lesion or ductal dilatation. Portal Vein: Hepatopedal flow seen in portal vein. Common Duct: Prominent in size measuring up to 10 mm without focal abnormality. Gallbladder: Appears contracted and contains a 5 mm stone. No significant pericholecystic fluid. Pancreas: Not well visualized. Right Kidney: Normal echotexture and cortical thickness. No mass or hydronephrosis. Other: None. CONCLUSION: 1. Contracted gallbladder with single 5 mm gallstone. No definitive sonographic evidence for acute c holecystitis. 2. Prominent common bile duct measuring up to 10 mm. No definite etiology by ultrasound. Electronically signed by: Efrain Mccormack MD 06/04/2018 11:25 PM EDT
[2018-06-05] MEDS: HYDROmorphone PF Inj 2 MG/ML Vial IV.PUSH PRN ×4 (02:37→20:41)
--- NOTE | 2018-06-05 11:29 | NM ---
EXAM DATE: 06/05/2018 11:15 AM EDT AGE/SEX: 63 years / Female INDICATIONS: Abdomen pain and nausea. CLINICAL DATA: This is the patient's initial encounter. Patient reports that signs and symptoms have been present for 1 day and indicates a pain score of 0/10. MEDICAL/SURGICAL HISTORY: Gastroesophageal reflux disease. None. COMPARISON: [facility] [place] GALLBLADDER, 06/04/2018. . DOSE: 4.2 mCi Tc-99m mebrofenin i.v. TECHNIQUE: Following the intravenous administration of radiotracer, dynamic sequential images were pe rformed with continuous acquisition. Time-activity curves were generated. FINDINGS: Hepatic Kinetics: There is prompt uptake of radiotracer in the liver. No focal defects are seen. T here is normal rate of washout from the hepatic parenchyma. Biliary Clearance: Activity is first seen in the extrahepatic biliary system at 25 minutes. There i s normal excretion into the small bowel. Gallbladder: The gallbladder is not visualized throughout the course of the examination. Cholecystiti s is not excluded Biliary-Enteric Reflux: None observed. CONCLUSION: 1. Nonvisualization of the gallbladder consistent with acute cholecystitis. Delayed imaging is to be performed Electronically signed by: Nemesio Cardenas MD 06/05/2018 11:28 AM EDT
--- NOTE | 2018-06-05 15:09 | P.PNGI ---
Subjective Interval history: Patient is resting in the bed on her left side supporting her abdomen. Patient states still having generalized upper left and right quadrant abdominal pain Nausea but no vomiting gradual improvement Normal BM yesterday Patient awake with some mild anxiety Note patient was transferred from [place] to [place] late Monday p.m. <Genna Dumont - Last Filed: 06/05/18 15:18> Physical Exam Vital signs: Vital Signs 06/04/18 16:00 06/04/18 20:00 06/04/18 20:22 Temperature 97.4 F L 97.9 F Pulse Rate 76 88 Respiratory Rate 18 18 18 Blood Pressure 102/59 L 131/58 L Pulse Oximetry 94 L 93 L 06/05/18 00:30 06/05/18 08:00 06/05/18 12:00 Temperature 98.6 F 98.5 F 98.0 F Pulse Rate 67 93 H 69 Respiratory Rate 17 22 20 Blood Pressure 129/63 153/77 H 135/63 Pulse Oximetry 92 L 90 L 93 L Intake & Output 06/04/18 06/05/18 06/05/18 18:59 06:59 18:59 Intake Total 1100 / 1100 0 / 0 Balance 1100 / 1100 0 / 0 Weight 54.8 kg Intake: IV 1000 / 1000 NS Inj 1,000 ML @ 70 mls/hr IV. 1000 / 1000 CONT .[id number] [facility] Rx#: [id number] Oral 0 / 0 Anesthesia Amount 100 / 100 Other: # Voids 3 2 Date of Last Bowel Movement 06/02/18 06/02/18 # Bowel Movements 0 - Constitutional moderate distress - Routine HEENT Exam Head: Present: normocephalic, atraumatic ENT: Present: mucous membranes dry - Routine Neck Exam Present: supple - Routine Cardiovascular Exam Present: RRR - Routine Abdominal Exam Present: normoactive bowel sounds ( soft bowel sounds), tenderness (Mid upper abdominal), distended (Mild), guarding (Mild) - Routine Skin Exam Present: intact - Routine Neurological Exam Present: alert - Detailed Neurological Exam: Coma Scale Verbal Response: Oriented - Routine Psychiatric Exam Present: anxious <Genna Dumont - Last Filed: 06/05/18 15:18> Vital signs: Vital Signs 06/04/18 16:00 06/04/18 20:00 06/04/18 20:22 Temperature 97.4 F L 97.9 F Pulse Rate 76 88 Respiratory Rate 18 18 18 Blood Pressure 102/59 L 131/58 L Pulse Oximetry 94 L 93 L 06/05/18 00:30 06/05/18 08:00 06/05/18 12:00 Temperature 98.6 F 98.5 F 98.0 F Pulse Rate 67 93 H 69 Respiratory Rate 17 22 20 Blood Pressure 129/63 153/77 H 135/63 Pulse Oximetry 92 L 90 L 93 L Intake & Output 06/04/18 06/05/18 06/05/18 18:59 06:59 18:59 Intake Total 1100 / 1100 0 / 0 Balance 1100 / 1100 0 / 0 Weight 54.8 kg Intake: IV 1000 / 1000 NS Inj 1,000 ML @ 70 mls/hr IV. 1000 / 1000 CONT .[id number] [facility] Rx#: [id number] Oral 0 / 0 Anesthesia Amount 100 / 100 Other: # Voids 3 2 Date of Last Bowel Movement 06/02/18 06/02/18 # Bowel Movements 0 <Jeane Mcclure - Last Filed: 06/05/18 15:27> Results - Labs CBC & Chem 7: 06/04/18 07:31 06/04/18 07:31 - Imaging Impressions Gallbladder Ultrasound 06/04/18 00:00 CONCLUSION: 1. Contracted gallbladder with single 5 mm gallstone. No definitive sonographic evidence for acute cholecystitis. 2. Prominent common bile duct measuring up to 10 mm. No definite etiology by ultrasound. Hepatobiliary Scan Nuclear Medicine 06/05/18 00:00 CONCLUSION: 1. Nonvisualization of the gallbladder consistent with acute cholecystitis. Delayed imaging is to be performed <Genna Dumont - Last Filed: 06/05/18 15:18> - Labs CBC & Chem 7: 06/04/18 07:31 06/04/18 07:31 - Imaging Impressions Gallbladder Ultrasound 06/04/18 00:00 CONCLUSION: 1. Contracted gallbladder with single 5 mm gallstone. No definitive sonographic evidence for acute cholecystitis. 2. Prominent common bile duct measuring up to 10 mm. No definite etiology by ultrasound. Hepatobiliary Scan Nuclear Medicine 06/05/18 00:00 CONCLUSION: 1. Nonvisualization of the gallbladder consistent with acute cholecystitis. Delayed imaging is to be performed <Jeane Mcclure - Last Filed: 06/05/18 15:27> Assessment and Plan (1) Acute cholecystitis Status: Acute Code(s): K81.0 - Acute cholecystitis - Plan Patient was transferred over to [place] from [place] late Monday evening on 06/03/2018. Patient was followed and seen per Dr. Peñaloza at [place] and was transitioned for ERCP. Abdominal pain left upper quadrant and right upper quadrant with symptoms of nausea still fairly constant and diffuse requiring pain medicines Acute cholecystitis per HIDA scan performed today on 06/05/2018. Patient is status post ERCP on 06/04/2018 but was unable to cannulate ampulla. Consider surgical evaluation ordered LFTs gradual decrease today with AST 62 ALT 110 Nausea but no current vomiting, patient upgraded to clear liquids today for trial Plan Diet just upgraded to clear liquids for trial Surgical consult for evaluation of acute cholecystitis Antiemetics Pain management per attending Supportive care Continue to monitor labs with special attention to LFTs which do show gradual decrease We will continue to follow Patient was seen per myself and Dr. Mcclure, note was written on his behalf <Genna Dumont - Last Filed: 06/05/18 15:18> (1) Acute cholecystitis Status: Acute Code(s): K81.0 - Acute cholecystitis - Attending Attestation As above, LFT's improving after ERCP attempt. Stone likely passed. HIDA scan showing evidence of acute cholecystitis. Surgical team to follow. Will follow up with you. <Jeane Mcclure - Last Filed: 06/05/18 15:27>
--- NOTE | 2018-06-05 15:24 | P.PN ---
Subjective Interval history: Follow-up visit cholecystitis, abdominal pain. Patient seen and examined today. Patient is standing up trying to stand up sit down and go to bed. States that she probably has gas and she is trying to walk it off. Complaints of midepigastric pain that radiates to left scapular region. Denies nausea, vomiting. Denies SOB/ dyspnea. Denies chest pain, palpitations, headaches, dizziness. Denies fevers, chills. Denies dysuria. Physical Exam Vital signs: Vital Signs 06/04/18 16:00 06/04/18 20:00 06/04/18 20:22 Temperature 97.4 F L 97.9 F Pulse Rate 76 88 Respiratory Rate 18 18 18 Blood Pressure 102/59 L 131/58 L Pulse Oximetry 94 L 93 L 06/05/18 00:30 06/05/18 08:00 06/05/18 12:00 Temperature 98.6 F 98.5 F 98.0 F Pulse Rate 67 93 H 69 Respiratory Rate 17 22 20 Blood Pressure 129/63 153/77 H 135/63 Pulse Oximetry 92 L 90 L 93 L Intake & Output 06/04/18 06/05/18 06/05/18 18:59 06:59 18:59 Intake Total 1100 / 1100 0 / 0 Balance 1100 / 1100 0 / 0 Weight 54.8 kg Intake: IV 1000 / 1000 NS Inj 1,000 ML @ 70 mls/hr IV. 1000 / 1000 CONT .[id number] [facility] Rx#: [id number] Oral 0 / 0 Anesthesia Amount 100 / 100 Other: # Voids 3 2 Date of Last Bowel Movement 06/02/18 06/02/18 # Bowel Movements 0 Narrative: GENERAL: This is a well-nourished, well-developed patient, in no apparent distress. SKIN: Warm and dry. HEENT: Normocephalic. Pupils equal round and reactive. Nose without bleeding. Airway patent. NECK: Trachea midline. CARDIOVASCULAR: Regular rate and rhythm without murmurs, gallops, or rubs. RESPIRATORY: Clear to auscultation. Breath sounds equal bilaterally. No wheezes , rales, or rhonchi. GASTROINTESTINAL: Abdomen soft, nondistended. Bowel Sounds normoactive x4. Tenderness to palpate mid epigastric region. MUSCULOSKELETAL: Extremities without clubbing, cyanosis, or edema. NEUROLOGICAL: Awake and alert. No focal neuro deficit. Moves all extremities. Normal speech. Results - Labs CBC & Chem 7: 06/04/18 07:31 06/04/18 07:31 - Imaging Impressions Gallbladder Ultrasound 06/04/18 00:00 CONCLUSION: 1. Contracted gallbladder with single 5 mm gallstone. No definitive sonographic evidence for acute cholecystitis. 2. Prominent common bile duct measuring up to 10 mm. No definite etiology by ultrasound. Hepatobiliary Scan Nuclear Medicine 06/05/18 00:00 CONCLUSION: 1. Nonvisualization of the gallbladder consistent with acute cholecystitis. Delayed imaging is to be performed Assessment and Plan - Assessment (1) Abdominal pain Code(s): R10.9 - Unspecified abdominal pain Status: Acute Plan: Patient with acute onset abdominal pain with intractable nausea vomiting: -CT scan does show significant intra-and extrahepatic ductal dilatation -MRCP has been performed and indicates intrahepatic biliary duct dilatation. Common bile duct measures 7 mm with fusiform narrowing at the ampulla -GI consulted for further recommendations, performed ERCP today, unable to cannulate ampulla. For now observe with pain management. HIDA scan ordered, unable to perform secondary to IV pain medication. Gallbladder US also ordered and pending. -Continue IV fluids -Clear liquid diet at this time, n.p.o. after midnight for US. -Antiemetics as needed. - Add Dilaudid to regimen. Assess response. - Supportive care. (2) Acute cholecystitis Code(s): K81.0 - Acute cholecystitis Status: Acute - Plan 63-year-old female with no significant past medical history who presented to the emergency department because acute onset of abdominal pain with intractable nausea vomiting. Acute cholecystitis Midepigastric abdominal pain radiating to left scapula -CT scan does show significant intra-and extrahepatic ductal dilatation -MRCP performed and indicates intrahepatic biliary duct dilatation. Common bile duct measures 7 mm with fusiform narrowing at the ampulla -GI consulted for further recommendations, performed ERCP, unable to cannulate ampulla. -Ultrasound of the gallbladder showed 1. Contracted gallbladder with single 5 mm gallstone. No definitive sonographic evidence for acute cholecystitis. 2. Prominent common bile duct measuring up to 10 mm. No definite etiology by ultrasound. -HIDA scan nonvisualization of the gallbladder consistent with acute cholecystitis. Delayed imaging is to be performed -Continue IV fluids -NPO for now -Antiemetics as needed. -Dilaudid IV for pain management. Give IV morphine x 1 dose now -Consult general surgery for further evaluation and treatment for possible surgical intervention. DVT prop ambulatory Code Status: Full Code Discussed Condition With: Patient, nursing, DELIO Martínez, DR. Grimm Discharge Planning: Plan to DC home when clinically improved.
[2018-06-05] MEDS ORDERED: Morphine Inj 4 MG/ML Vial IM ONE (15:25)
--- NOTE | 2018-06-05 16:43 | US ---
EXAM DATE: 06/05/2018 4:26 PM EDT AGE/SEX: 63 years / Female INDICATIONS: Abdominal pain. CLINICAL DATA: This is the patient's subsequent encounter. Patient reports that signs and/or symptom s have been present for 3 days and indicates a pain score of 5/10. MEDICAL/SURGICAL HISTORY: . Abdominal pain. None. [place] [facility] [place]. . MEASUREMENTS: Liver:__ 13.2 cm. Common Bile Duct:__ 7mm. FINDINGS: Liver: Increased echotexture without focal lesion or ductal dilation. Portal Vein: Hepatopedal flow seen in portal vein. Common Duct: No intraluminal mass or stone visualized. Gallbladder: There is a single gallstone without gallbladder wall thickening or pericholecystic flui d measuring 6 mm. Pancreas: The visualized portions are within normal limits Right Kidney: Increased echotexture. No mass or hydronephrosis. Other: A small right sided effusion is present. CONCLUSION: Cholelithiasis Echogenic liver compatible with fatty infiltration or hepatocellular disease. Echogenic right kidney compatible with medical renal disease. Electronically signed by: eNmesio Cardenas MD 06/05/2018 4:42 PM EDT
[2018-06-05] MEDS: Sod Chloride 0.9% Inj 1,000 ML IV.CONT SCH (16:51)
--- NOTE | 2018-06-05 16:52 | P.CONGS ---
HPI Surgery Consult Note Consult date: 06/05/18 Reason for consult: abdominal pain Requesting physician: Genna Dumont Narrative: This is a 63 year old female with no significant past medical history who presented to the ED with complaints of sudden onset of abdominal pain that began on Monday. The patient went to work as usual on Monday and after work went to a birthday [employer] where she ate a couple of potato chips and a few berries. After this, the abdominal pain began with associated nausea and vomiting. The patient denies any episode of pain like this before. A CT abdomen/pelvis was obtained which showed intrahepatic and extrahepatic dilation without any evidence of gallstones. On admission the patient's liver enzymes were elevated. An MRCP was obtained which showed mild duct dilation and a common bile duct of 7mm. An ERCP was completed yesterday but with an unsuccessful cannulation. Her liver enzyme are trending down. A HIDA scan was obtained which showed nonvisualization of the gallbladder most consistent with acute cholecystitis. A General Surgery consultation has been requested. <Puja Ag - Last Filed: 06/06/18 12:32> Narrative: CONSULTATION NOTE FOR SURGICAL ATTENDING, DR. ALFREDO LION <AyadAlfredo - Last Filed: 06/06/18 14:32> Review of Systems Constitutional: Denies fatigue, Denies headache(s) Eyes: Denies pain Ears, Nose, Mouth, and Throat: Denies abnormal hearing Cardiovascular: Denies chest pain Respiratory: Denies cough, Denies excessive phlegm production Gastrointestinal: Reports abdominal pain, Reports nausea, Reports vomiting Genitourinary: Denies pelvic pain Musculoskeletal: Denies abnormal walking, Denies back pain Skin/Breast: Denies skin pain Neurologic: Denies abnormal hearing Psychiatric: Denies abnormal sleep pattern, Denies confusion Endocrine: Denies cold intolerance, Denies excessive sweating Hematologic/Lymphatic: Denies easy bleeding Allergic/Immunologic: Denies GI upset with certain foods <Puja Ag - Last Filed: 06/06/18 12:32> Gastrointestinal: Reports cramping <Alfredo Lion - Last Filed: 06/06/18 14:32> PMFSH - History History Provided By: Patient - Medical / Surgical Hx Neg / Unobtainable Medical Problems Denied: Yes - Medical History Medical History: Medical History (Last Updated 06/03/18 @ 11:57 by REYNALDO Easley) No significant past medical history - Family History Family History: Family History (Last Reviewed 06/03/18 @ 22:07 by Juana Monroy RN) Other Family history non-contributory - Tobacco History Second Hand Smoke Exposure: Yes Tobacco Use In Past 30 Days: Yes Smoking Status: Current some day smoker Tobacco Type: Cigarettes - Alcohol History How Often Do You Have a Drink Containing Alcohol: 2 to 3 times a week - Substance Use History Substance History: No History of Abuse - Travel History Recent Travel in the [place] Within the Last 8 Weeks: No Recent Travel Out of the Country Within the Last 8 Weeks: No - Immunization History Tetanus Immunization: Unable to Assess Hx Influenza Vaccine This Season: No <Puja Ag - Last Filed: 06/06/18 12:32> - Medical History Medical History: Medical History (Last Updated 06/03/18 @ 11:57 by REYNALDO Easley) No significant past medical history - Family History Family History: Family History (Last Reviewed 06/03/18 @ 22:07 by Juana Monroy RN) Other Family history non-contributory <AyadAlfredo - Last Filed: 06/06/18 14:32> Medications and Allergies Active Medications: Active Medications Al Hydroxide/Mg Hydroxide (Milk Of Magnesia Liq) 30 ml PO Q12H PRN PRN Reason: Mild Constipation Bisacodyl (Dulcolax Supp) 10 mg RECTAL DAILY PRN PRN Reason: SEVERE CONSITIPATION Chlorhexidine Gluconate (Chlorhexidine 2% Cloth) 3 pack TOPICAL ASSEMBLY LINE UPHOLSTERER [facility] Stop: 06/07/18 00:20 Hydromorphone HCl (Dilaudid Pf Inj) 1 mg IV.PUSH Q4H PRN PRN Reason: PAIN SCALE 1 TO 10 Last Admin: 06/05/18 11:26 Dose: 1 mg Sodium Chloride (Ns Inj) 1,000 mls @ 70 mls/hr IV.CONT .[id number] [facility] Last Admin: 06/04/18 09:21 Dose: 70 mls/hr Lactated Ringer's (Lr 1000 Ml Inj) 1,000 mls @ 30 mls/hr IV.SIG .Q24H [facility] Stop: 06/07/18 00:20 Sodium Chloride (Ns Inj) 500 mls @ 30 mls/hr IV.SIG .Q10H [facility] Stop: 06/07/18 00:20 Lactulose (Lactulose Liq) 30 ml PO DAILY PRN PRN Reason: SEVERE CONSITIPATION Metoprolol Tartrate (Lopressor) 25 mg PO ASSEMBLY LINE UPHOLSTERER [facility] Stop: 06/07/18 00:20 Naloxone HCl (Narcan Inj) 0.4 mg IV.PUSH Q2M PRN PRN Reason: OVERSEDATION Ondansetron HCl (Zofran Inj) 4 mg IV.PUSH Q6H PRN PRN Reason: NAUSEA OR VOMITING Last Admin: 06/04/18 18:51 Dose: 4 mg Povidone Iodine (Betadine 5% Antisepsis Kit) 1 applicatio EACH NARE ASSEMBLY LINE UPHOLSTERER [facility] Stop: 06/07/18 00:20 Promethazine HCl (Phenergan Supp) 25 mg RECTAL Q4H PRN PRN Reason: NAUSEA OR VOMITING Last Admin: 06/04/18 15:02 Dose: 25 mg Senna/Docusate Sodium (Kimberly-Colace) 1 tab PO BID [facility] Last Admin: 06/04/18 21:59 Dose: Not Given Sennosides (Senokot) 17.2 mg PO Q12H PRN PRN Reason: Moderate Constipation Sodium Chloride (Ns Flush) 2 ml IV.FLUSH PRN PRN PRN Reason: FLUSH AFTER USING IV ACCESS Sucralfate (Carafate Liq) 1 gm PO QID PRN PRN Reason: ABDOMINAL PAIN Temazepam (Restoril) 15 mg PO HS PRN PRN Reason: INSOMNIA <Puja Ag - Last Filed: 06/06/18 12:32> Active Medications: Active Medications Al Hydroxide/Mg Hydroxide (Milk Of Magnesia Liq) 30 ml PO Q12H PRN PRN Reason: Mild Constipation Bisacodyl (Dulcolax Supp) 10 mg RECTAL DAILY PRN PRN Reason: SEVERE CONSITIPATION Chlorhexidine Gluconate (Chlorhexidine 2% Cloth) 3 pack TOPICAL ASSEMBLY LINE UPHOLSTERER [facility] Stop: 06/07/18 00:20 Hydromorphone HCl (Dilaudid Pf Inj) 1 mg IV.PUSH Q4H PRN PRN Reason: PAIN SCALE 1 TO 10 Last Admin: 06/06/18 13:36 Dose: 1 mg Sodium Chloride (Ns Inj) 1,000 mls @ 70 mls/hr IV.CONT .[id number] [facility] Last Admin: 06/06/18 01:14 Dose: 70 mls/hr Lactated Ringer's (Lr 1000 Ml Inj) 1,000 mls @ 30 mls/hr IV.SIG .Q24H [facility] Stop: 06/07/18 00:20 Last Admin: 06/06/18 14:09 Dose: 30 mls/hr Sodium Chloride (Ns Inj) 500 mls @ 30 mls/hr IV.SIG .Q10H [facility] Stop: 06/07/18 00:20 Piperacillin/Tazobactam/Dextrose (Zosyn 3.375 Gm Premix) 50 mls @ 100 mls/hr IV.SIG Q8H [facility] Last Infusion: 06/06/18 09:43 Dose: Infused Metronidazole/Sodium Chloride (Flagyl 500 Mg Inj) 100 mls @ 100 mls/hr IV.SIG Q8H [facility] Last Admin: 06/06/18 11:13 Dose: 100 mls/hr Lactulose (Lactulose Liq) 30 ml PO DAILY PRN PRN Reason: SEVERE CONSITIPATION Metoprolol Tartrate (Lopressor) 25 mg PO ASSEMBLY LINE UPHOLSTERER [facility] Stop: 06/07/18 00:20 Naloxone HCl (Narcan Inj) 0.4 mg IV.PUSH Q2M PRN PRN Reason: OVERSEDATION Ondansetron HCl (Zofran Inj) 4 mg IV.PUSH Q6H PRN PRN Reason: NAUSEA OR VOMITING Last Admin: 06/06/18 04:14 Dose: 4 mg Povidone Iodine (Betadine 5% Antisepsis Kit) 1 applicatio EACH NARE ASSEMBLY LINE UPHOLSTERER [facility] Stop: 06/07/18 00:20 Promethazine HCl (Phenergan Supp) 25 mg RECTAL Q4H PRN PRN Reason: NAUSEA OR VOMITING Last Admin: 06/04/18 15:02 Dose: 25 mg Senna/Docusate Sodium (Kimberly-Colace) 1 tab PO BID [facility] Last Admin: 06/06/18 09:14 Dose: 1 tab Sennosides (Senokot) 17.2 mg PO Q12H PRN PRN Reason: Moderate Constipation Sodium Chloride (Ns Flush) 2 ml IV.FLUSH PRN PRN PRN Reason: FLUSH AFTER USING IV ACCESS Last Admin: 06/06/18 04:09 Dose: 2 ml Sucralfate (Carafate Liq) 1 gm PO QID PRN PRN Reason: ABDOMINAL PAIN Last Admin: 06/06/18 01:16 Dose: 1 gm Temazepam (Restoril) 15 mg PO HS PRN PRN Reason: INSOMNIA <Alfredo Lion - Last Filed: 06/06/18 14:32> Allergies Allergy/AdvReac Type Severity Reaction Status Date / Time No Known Allergies Allergy Verified 06/03/18 11:04 Home Medications Medication Instructions Recorded Confirmed Type No Known Home Medications 06/02/18 06/02/18 History Exam Vital signs: Vital Signs 06/04/18 20:00 06/04/18 20:22 06/05/18 00:30 Temperature 97.9 F 98.6 F Pulse Rate 88 67 Respiratory Rate 18 18 17 Blood Pressure 131/58 L 129/63 Pulse Oximetry 93 L 92 L 06/05/18 08:00 06/05/18 12:00 Temperature 98.5 F 98.0 F Pulse Rate 93 H 69 Respiratory Rate 22 20 Blood Pressure 153/77 H 135/63 Pulse Oximetry 90 L 93 L Intake & Output 06/04/18 06/05/18 06/05/18 18:59 06:59 18:59 Intake Total 1100 / 1100 0 / 0 Balance 1100 / 1100 0 / 0 Weight 54.8 kg Intake: IV 1000 / 1000 NS Inj 1,000 ML @ 70 mls/hr IV. 1000 / 1000 CONT .[id number] [facility] Rx#: [id number] Oral 0 / 0 Anesthesia Amount 100 / 100 Other: # Voids 3 2 Date of Last Bowel Movement 06/02/18 06/02/18 # Bowel Movements 0 Narrative: GENERAL: Very pleasant 63 year old female resting in bed in no acute distress. SKIN: Warm and dry. HEAD: Atraumatic. Normocephalic. EYES: Pupils equal and round. No scleral icterus. No injection or drainage. ENT: No nasal bleeding or discharge. Mucous membranes pink and moist. NECK: Trachea midline. CARDIOVASCULAR: Regular rate and rhythm. RESPIRATORY: No accessory muscle use. Clear to auscultation. Breath sounds equal bilaterally. GASTROINTESTINAL: Abdomen soft, mildly distended. RUQ/LUQ/epigastric tenderness with palpation. MUSCULOSKELETAL: Extremities without clubbing, cyanosis, or edema. No obvious deformities. NEUROLOGICAL: Awake and alert. No obvious cranial nerve deficits. Motor grossly within normal limits. Five out of 5 muscle strength in the arms and legs. Normal speech. PSYCHIATRIC: Appropriate mood and affect; insight and judgment normal. <Puja Ag - Last Filed: 06/06/18 12:32> Vital signs: Vital Signs 06/05/18 16:00 06/05/18 17:13 06/05/18 20:00 Temperature 98.4 F 99.0 F Pulse Rate 74 87 Respiratory Rate 20 18 Blood Pressure 139/69 136/75 Pulse Oximetry 94 L 93 L 06/05/18 20:45 06/06/18 00:00 06/06/18 08:00 Temperature 98.7 F 98.1 F Pulse Rate 85 95 H Respiratory Rate 18 18 Blood Pressure 131/73 140/63 Pulse Oximetry 93 L 91 L 06/06/18 09:44 Temperature Pulse Rate Respiratory Rate 16 Blood Pressure Pulse Oximetry Intake & Output 06/05/18 06/06/18 06/06/18 18:59 06:59 18:59 Intake Total 480 / 480 1100 / 1100 50 / 50 Balance 480 / 480 1100 / 1100 50 / 50 Weight 54.89 kg Intake: IV 1100 / 1100 50 / 50 NS Inj 1,000 ML @ 70 mls/hr IV. 1000 / 1000 CONT .[id number] [facility] Rx#: [id number] Zosyn 3.375 GM Premix 50 ML @ 100 / 100 50 / 50 100 mls/hr IV.SIG Q8H [facility] Rx#: [id number] Oral 480 / 480 Other: # Voids 2 3 Date of Last Bowel Movement 06/02/18 06/02/18 06/02/18 Narrative: Patient has Vargas sign right upper quadrant midepigastric tenderness <Alfredo Lion - Last Filed: 06/06/18 14:32> Results - Labs 06/06/18 07:30 06/06/18 07:30 All other labs normal. <Puja Ag - Last Filed: 06/06/18 12:32> - Labs 06/06/18 07:30 06/06/18 07:30 Abnormal lab results 06/06/18 06/06/18 06/06/18 Range/Units 07:30 07:30 07:30 WBC 16.7 H (4.0-11.0) th/mm3 Plt Count 131 L (150-450) th/mm3 MPV 11.1 H (7.0-11.0) fL Neut % (Auto) 86.8 H (16.0-70.0) % Lymph % (Auto) 5.5 L (9.0-44.0) % Neut # (Auto) 14.5 H (1.8-7.7) th/mm3 Lymph # (Auto) 0.9 L (1.0-4.8) th/mm3 Glascock # (Auto) 1.3 H (0.0-0.9) th/mm3 PT 11.9 H (9.8-11.6) sec Sodium 146 H (136-145) meq/L Potassium 3.2 L (3.5-5.1) meq/L Chloride 112 H (98-107) meq/L Random Glucose 109 H (74-106) mg/dL Calcium 7.7 L (8.5-10.1) mg/dL Total Bilirubin (0.2-1.0) mg/dL Direct Bilirubin (0.0-0.2) mg/dL AST (15-37) U/L ALT (10-53) U/L Total Protein (6.4-8.2) g/dL Albumin (3.4-5.0) g/dL 06/06/18 Range/Units 11:28 WBC (4.0-11.0) th/mm3 Plt Count (150-450) th/mm3 MPV (7.0-11.0) fL Neut % (Auto) (16.0-70.0) % Lymph % (Auto) (9.0-44.0) % Neut # (Auto) (1.8-7.7) th/mm3 Lymph # (Auto) (1.0-4.8) th/mm3 Glascock # (Auto) (0.0-0.9) th/mm3 PT (9.8-11.6) sec Sodium (136-145) meq/L Potassium (3.5-5.1) meq/L Chloride (98-107) meq/L Random Glucose (74-106) mg/dL Calcium (8.5-10.1) mg/dL Total Bilirubin 1.1 H (0.2-1.0) mg/dL Direct Bilirubin 0.4 H (0.0-0.2) mg/dL AST 42 H (15-37) U/L ALT 93 H (10-53) U/L Total Protein 5.9 L (6.4-8.2) g/dL Albumin 2.5 L (3.4-5.0) g/dL Diabetes panel 06/06/18 06/06/18 Range/Units 07:30 11:28 Sodium 146 H (136-145) meq/L Potassium 3.2 L (3.5-5.1) meq/L Chloride 112 H (98-107) meq/L Carbon Dioxide 24.6 (21.0-32.0) meq/L BUN 18 (7-18) mg/dL Creatinine 0.66 (0.50-1.00) mg/dL Calcium 7.7 L (8.5-10.1) mg/dL AST 42 H (15-37) U/L ALT 93 H (10-53) U/L Alkaline Phosphatase 70 (45-117) U/L Total Protein 5.9 L (6.4-8.2) g/dL Albumin 2.5 L (3.4-5.0) g/dL Calcium panel 06/06/18 06/06/18 Range/Units 07:30 11:28 Calcium 7.7 L (8.5-10.1) mg/dL Albumin 2.5 L (3.4-5.0) g/dL Pituitary panel 06/06/18 Range/Units 07:30 Sodium 146 H (136-145) meq/L Potassium 3.2 L (3.5-5.1) meq/L Chloride 112 H (98-107) meq/L Carbon Dioxide 24.6 (21.0-32.0) meq/L BUN 18 (7-18) mg/dL Creatinine 0.66 (0.50-1.00) mg/dL Calcium 7.7 L (8.5-10.1) mg/dL Adrenal panel 06/06/18 06/06/18 Range/Units 07:30 11:28 Sodium 146 H (136-145) meq/L Potassium 3.2 L (3.5-5.1) meq/L Chloride 112 H (98-107) meq/L Carbon Dioxide 24.6 (21.0-32.0) meq/L BUN 18 (7-18) mg/dL Creatinine 0.66 (0.50-1.00) mg/dL Calcium 7.7 L (8.5-10.1) mg/dL Total Bilirubin 1.1 H (0.2-1.0) mg/dL AST 42 H (15-37) U/L ALT 93 H (10-53) U/L Alkaline Phosphatase 70 (45-117) U/L Total Protein 5.9 L (6.4-8.2) g/dL Albumin 2.5 L (3.4-5.0) g/dL All other labs normal. - Imaging Abdominal x-ray: report reviewed CT scan - abdomen: report reviewed CT scan - chest: report reviewed CT scan - pelvis: report reviewed US - abdomen: report reviewed (FINDINGS: Liver: Increased echotexture without focal lesion or ductal dilation. Portal Vein: Hepatopedal flow seen in portal vein. Common Duct: No intraluminal mass or stone visualized. Gallbladder: There is a single gallstone without gallbladder wall thickening or pericholecystic fluid measuring 6 mm. Pancreas: The visualized portions are within normal limits Right Kidney: Increased echotexture. No mass or hydronephrosis. Other: A small right sided effusion is present. CONCLUSION: Cholelithiasis) EKG: report reviewed Additional studies: HIDA scan reviewed CONCLUSION: 1. Nonvisualization of the gallbladder consistent with acute cholecystitis. Delayed imaging is to be performed MRCP reviewed CONCLUSION: 1. Mild intrahepatic biliary duct dilatation. 2. Common bile duct measures 7 mm in the midportion with fusiform narrowing at the ampulla. <Alfredo Lion - Last Filed: 06/06/18 14:32> Assessment and Plan - Plan 63 year old female with abdominal pain; concerning for acute cholecystitis -Will plan for laparoscopic cholecystectomy tomorrow -Explained procedure in detail including risks and benefits; all questions answered -Clear liquids tonight; NPO after MN -Recheck labs in AM--- if liver enzymes trending down will proceed with surgery -Thank you for this consult; We will continue to follow Discussed Condition With: Dr. Ayad Kwok RN Arley Cai <Puja Ag - Last Filed: 06/06/18 12:32> - Assessment (1) Elevated WBC count Code(s): D72.829 - Elevated white blood cell count, unspecified Status: Acute (2) RUQ pain Code(s): R10.11 - Right upper quadrant pain Status: Acute (3) Abdominal pain Code(s): R10.9 - Unspecified abdominal pain Status: Acute Qualifiers: Abdominal location: right upper quadrant Qualified Code(s): R10.11 - Right upper quadrant pain (4) Acute cholecystitis Code(s): K81.0 - Acute cholecystitis Status: Acute - Attending Attestation CONSULTATION NOTE FOR SURGICAL ATTENDING, DR. ALFREDO LION I agree with above assessment and plan. Patient has classic symptoms of biliary colic Plan laparoscopic cholecystectomy as long as LFTs trending downward Discussed in detail with the patient she appeared to understand The exam, history, and the medical decision-making described in the above note were completed with the assistance of the mid-level provider. I reviewed and agree with the findings presented. I attest that I had a [id number] encounter with the patient on the same day, and personally performed and documented my assessment and findings in the medical record. The following services were provided during this hospital visit: Chart data review, vital sign assessments/reviewing monitor data Review of consultations notes if present. Medication orders/review and/or management Ordering and/or reviewing lab tests Ordering and/or interpreting/reviewing x-rays and/or diagnostic studies Care of the patient and discussion of the patient with the care team Documentation time To help prompt me to consider important information that might be impacting today's encounter and assessment, Information from prior notes written by myself or my colleagues may have been "brought forward/copy and pasted" into today's note. <Alfredo Lion - Last Filed: 06/06/18 14:32>
[2018-06-05] MEDS: Sucralfate Liq 1 GM/10 ML UDC PO PRN (16:55)
[2018-06-05] MEDS: Senna/Docusate Sodium 8.6/50 MG Tablet PO SCH ×2 (18:13→20:42)
[2018-06-05] MEDS: Piperacil/Tazo 3.375 GM Premix 50 ML IV.SIG SCH (18:44)
[2018-06-06] MEDS: Sod Chloride 0.9% Inj 1,000 ML IV.CONT SCH ×3 (01:13→20:45)
[2018-06-06] MEDS: Sucralfate Liq 1 GM/10 ML UDC PO PRN ×2 (01:16→23:15)
[2018-06-06] MEDS: Piperacil/Tazo 3.375 GM Premix 50 ML IV.SIG SCH ×3 (01:16→19:06)
[2018-06-06] MEDS: HYDROmorphone PF Inj 2 MG/ML Vial IV.PUSH PRN ×4 (04:09→23:14)
--- NOTE | 2018-06-06 08:14 | P.PN ---
Subjective Interval history: Follow-up visit acute cholecystitis, abdominal pain. Patient seen and examined today. Patient reports she has some nausea but no vomiting. States that she continues to have abdominal pain midepigastric region and diffuse throughout her abdomen. Nonradiating. States she is going for surgery today. Mild SOB/ dyspnea. Denies chest pain, palpitations, headaches, dizziness. Denies fevers, chills. Reports mild dysuria. Physical Exam Vital signs: Vital Signs 06/05/18 11:56 06/05/18 12:00 06/05/18 16:00 Temperature 98.0 F 98.4 F Pulse Rate 69 74 Respiratory Rate 18 20 20 Blood Pressure 135/63 139/69 Pulse Oximetry 93 L 94 L 06/05/18 17:13 06/05/18 20:00 06/05/18 20:45 Temperature 99.0 F Pulse Rate 87 Respiratory Rate 17 18 18 Blood Pressure 136/75 Pulse Oximetry 93 L 06/06/18 00:00 Temperature 98.7 F Pulse Rate 85 Respiratory Rate 18 Blood Pressure 131/73 Pulse Oximetry 93 L Intake & Output 06/05/18 06/06/18 06/06/18 18:59 06:59 18:59 Intake Total 480 / 480 1050 / 1050 Balance 480 / 480 1050 / 1050 Weight 54.89 kg Intake: IV 1050 / 1050 NS Inj 1,000 ML @ 70 mls/hr IV. 1000 / 1000 CONT .[id number] [facility] Rx#: [id number] Zosyn 3.375 GM Premix 50 ML @ 50 / 50 100 mls/hr IV.SIG Q8H [facility] Rx#: [id number] Oral 480 / 480 Other: # Voids 2 3 Date of Last Bowel Movement 06/02/18 06/02/18 Narrative: GENERAL: This is a well-nourished, well-developed patient, in no apparent distress. SKIN: Warm and dry. HEENT: Normocephalic. Pupils equal round and reactive. Nose without bleeding. Airway patent. NECK: Trachea midline. CARDIOVASCULAR: Regular rate and rhythm without murmurs, gallops, or rubs. RESPIRATORY: Clear to auscultation. Breath sounds equal bilaterally. No wheezes , rales, or rhonchi. GASTROINTESTINAL: Abdomen soft, nondistended. Bowel Sounds normoactive x4. Tenderness to palpate mid epigastric region. MUSCULOSKELETAL: Extremities without clubbing, cyanosis, or edema. NEUROLOGICAL: Awake and alert. No focal neuro deficit. Moves all extremities. Normal speech. Results - Labs CBC & Chem 7: 06/06/18 07:30 06/06/18 07:30 - Imaging Impressions Gallbladder Ultrasound 06/05/18 00:00 CONCLUSION: Cholelithiasis Echogenic liver compatible with fatty infiltration or hepatocellular disease. Echogenic right kidney compatible with medical renal disease. Hepatobiliary Scan Nuclear Medicine 06/05/18 00:00 CONCLUSION: 1. Nonvisualization of the gallbladder consistent with acute cholecystitis. Delayed imaging is to be performed Assessment and Plan - Assessment (1) Abdominal pain Code(s): R10.9 - Unspecified abdominal pain Status: Acute (2) Acute cholecystitis Code(s): K81.0 - Acute cholecystitis Status: Acute - Plan 63-year-old female with no significant past medical history who presented to the emergency department because acute onset of abdominal pain with intractable nausea vomiting. Acute cholecystitis Midepigastric abdominal pain radiating to left scapula Transaminitis -CT scan does show significant intra-and extrahepatic ductal dilatation -MRCP performed and indicates intrahepatic biliary duct dilatation. Common bile duct measures 7 mm with fusiform narrowing at the ampulla -GI consulted for further recommendations, performed ERCP, unable to cannulate ampulla. -Ultrasound of the gallbladder showed 1. Contracted gallbladder with single 5 mm gallstone. No definitive sonographic evidence for acute cholecystitis. 2. Prominent common bile duct measuring up to 10 mm. No definite etiology by ultrasound. -HIDA scan nonvisualization of the gallbladder consistent with acute cholecystitis. Delayed imaging is to be performed -IV fluids,NPO for now -Antiemetics as needed. -Dilaudid IV for pain management. -Consult general surgery appreciate recommendations. Plan for surgical intervention, lap cholecystectomy -Monitor LFTS -Elevated WBC, start IV Flagyl Hypokalemia -Replacements -Monitor K level DVT prop ambulatory, SCDs Code Status: Full Code Discussed Condition With: Patient, nursing Discharge Planning: Plan to DC home when clinically improved. Surgery today. (1) Abdominal pain Qualifiers: Abdominal location: right upper quadrant Qualified Code(s): R10.11 - Right upper quadrant pain
[2018-06-06 08:25] LABS: Baso % (Auto) 0.1 % (0.0-2.0); Hematocrit 44.5 % (35.0-46.0); Hemoglobin 14.7 gm/dL (11.6-15.3); Lymph # (Auto) 0.9 th/mm3 (1.0-4.8); Lymph % (Auto) 5.5 % (9.0-44.0); Mean Corpuscular HGB Conc 33.1 % (32.0-36.0); Mean Corpuscular Hemoglobin 31.9 pg (27.0-34.0); Mean Corpuscular Volume 96.3 fL (80.0-100.0); Mean Platelet Volume 11.1 fL (7.0-11.0); Mono # (Auto) 1.3 th/mm3 (0.0-0.9); Mono % (Auto) 7.6 % (0.0-8.0); Neut # (Auto) 14.5 th/mm3 (1.8-7.7); Neut % (Auto) 86.8 % (16.0-70.0); Platelet Count 131 th/mm3 (150-450); Red Blood Count 4.62 mil/mm3 (4.00-5.30); Red Cell Distribution Width 13.9 % (11.6-17.2); White Blood Count 16.7 th/mm3 (4.0-11.0)
[2018-06-06 08:36] LABS: INR 1.2 Ratio; Prothrombin Time 11.9 sec (9.8-11.6)
[2018-06-06 08:55] LABS: Anion Gap 9 meq/L (5-15); Blood Urea Nitrogen 18 mg/dL (7-18); Calcium 7.7 mg/dL (8.5-10.1); Carbon Dioxide 24.6 meq/L (21.0-32.0); Chloride 112 meq/L (98-107); Glomerular Filtration Rate Greater Than 89 mL/min (>89); Glucose,Random 109 mg/dL (74-106); Potassium 3.2 meq/L (3.5-5.1); Sodium 146 meq/L (136-145)
[2018-06-06] MEDS: Senna/Docusate Sodium 8.6/50 MG Tablet PO SCH ×2 (09:14→20:45)
[2018-06-06] MEDS: Potassium Chlor 20 mEq Premix 20 MEQ/100 ML PIGGYBACK IV.SIG SCH ×2 (12:24→20:45)
[2018-06-06 12:59] LABS: Albumin 2.5 g/dL (3.4-5.0)
[2018-06-06 13:02] LABS: Total Protein 5.9 g/dL (6.4-8.2)
[2018-06-06] MEDS ORDERED: Bupivacaine/Epinephrine Inj 0.25% 50 ML Vial ONE (13:55)
[2018-06-06] MEDS ORDERED: Sugammadex Inj 200 MG/2 ML Vial IV.PUSH ONE (15:17)
[2018-06-06] MEDS ORDERED: fentaNYL Citrate Inj 100 MCG/2 ML Ampul ONE (15:54)
--- NOTE | 2018-06-06 16:16 | MP ---
cc: Alfredo Lion MD DATE OF OPERATION: 06/06/2018 DATE OF PROCEDURE: 06/06/2018 PREOPERATIVE DIAGNOSES: Cholelithiasis, cholecystitis. POSTOPERATIVE DIAGNOSES: Cholelithiasis, cholecystitis. PROCEDURE PERFORMED: Laparoscopic cholecystectomy. ANESTHESIA: General. SURGEON: Alfredo Lion MD INDICATIONS FOR PROCEDURE: This is a pleasant 63-year-old female who has had some acute onset of biliary colic. She had imaging and GI evaluation, found to have cholelithiasis with classic symptoms of right upper quadrant pain after a meal. Plans were made for above. DESCRIPTION OF PROCEDURE: The patient was taken to the operating room and placed in supine position. After receiving anesthesia, a timeout is done, she was given preoperative antibiotics. We make an incision just below the umbilicus and a Veress needle was inserted. The saline load test was performed. The abdomen was insufflated to 15 mmHg. The 10 mm trocar was introduced. Two other working ports were placed, 5 mm below the xiphoid, 5 mm in between the 2 previously placed ports. The gallbladder can be seen. It is contracted and small and omentum is stuck to it. We were able to tease this away with blunt dissection and hydrodissection and electrocautery device. We were able to grasp the gallbladder. It was very contracted, very small, a palpated stone within the gallbladder. We dissected the cystic duct out, which could be easily identified and doubly ligated with Hemoclips. The cystic artery was nonexistent. Gallbladder was then teased off the gallbladder bed. It is fairly inflamed. It was placed in the EndoCatch and pulled out through the umbilical incision. It is a very small gallbladder, almost a micro gallbladder. It does have a firm stone within it. We then checked our dissection site and there was excellent hemostasis without biliary leakage. We did encounter a fair amount of fluid that was in her abdomen, slightly green color. This was all evacuated. It was over her liver and spleen, which is evacuated with the suction device. We irrigated with 3 liters of saline, checked our dissection site. The anterior portion of the stomach looks normal as well as the duodenum. There is no inflammatory response around the duodenum, but I can visualize it. Her ascending colon is slightly dilated, but no other gross abnormalities seen. After irrigating copiously, all this irrigating solution was removed. We checked our dissection site and had excellent hemostasis without biliary leakage and we then removed all 3 trocars. The fascial layer at the umbilicus was closed with 0 Vicryl and skin at the 3 sites closed with 4-0 Vicryl. Steri-Strips were applied. Sterile bandage was applied. The patient tolerated the procedure well and had no immediate postop complications. MD WASHINGTON Maza/KD , 03:56 PM , 04:15 PM
[2018-06-06] MEDS ORDERED: Lidocaine PF 1% Inj 5 ML Syringe INFILTRATN ONE (16:52)
[2018-06-06] MEDS ORDERED: Phenylephrine/NS 1000 MCG/10ML Syringe IV.PUSH ONE (16:52)
--- NOTE | 2018-06-06 18:17 | P.PNGI ---
Subjective Interval history: Patient is awake alert feels so much better and resting in bed No further nausea minimal abdominal pain Patient is status post lap marbella <WrightsGenna - Last Filed: 06/06/18 18:14> Physical Exam Vital signs: Vital Signs 06/05/18 20:00 06/05/18 20:45 06/06/18 00:00 Temperature 99.0 F 98.7 F Pulse Rate 87 85 Respiratory Rate 18 18 18 Blood Pressure 136/75 131/73 Pulse Oximetry 93 L 93 L 06/06/18 08:00 06/06/18 09:44 06/06/18 12:00 Temperature 98.1 F 98.8 F Pulse Rate 95 H 82 Respiratory Rate 18 16 18 Blood Pressure 140/63 113/75 Pulse Oximetry 91 L 95 06/06/18 15:41 06/06/18 15:45 06/06/18 16:00 Temperature 98.4 F Pulse Rate 87 103 H 92 H Respiratory Rate 12 18 18 Blood Pressure 100/54 L 106/57 L 100/56 L Pulse Oximetry 89 L 93 L 93 L 06/06/18 16:15 Temperature 97.4 F L Pulse Rate 93 H Respiratory Rate 17 Blood Pressure 98/55 L Pulse Oximetry 93 L Intake & Output 06/05/18 06/06/18 06/06/18 18:59 06:59 18:59 Intake Total 480 / 480 1100 / 1100 850 / 850 Output Total 5 / 5 Balance 480 / 480 1100 / 1100 845 / 845 Weight 54.89 kg Intake: IV 1100 / 1100 150 / 150 NS Inj 1,000 ML @ 70 mls/hr IV. 1000 / 1000 CONT .[id number] THOMAS Rx#: [id number] Zosyn 3.375 GM Premix 50 ML @ 100 / 100 50 / 50 100 mls/hr IV.SIG Q8H THOMAS Rx#: [id number] Flagyl 500 MG Inj 100 ML @ 100 100 / 100 mls/hr IV.SIG Q8H THOMAS Rx#: [id number] Oral 480 / 480 Anesthesia Amount 700 / 700 Output: Estimated Blood Loss 5 / 5 Other: # Voids 2 3 Date of Last Bowel Movement 06/02/18 06/02/18 06/02/18 - Constitutional no acute distress - Routine HEENT Exam Head: Present: normocephalic, atraumatic (More alert) ENT: Present: mucous membranes moist - Routine Neck Exam Present: supple - Routine Respiratory Exam Present: decreased breath sounds - Routine Cardiovascular Exam Present: RRR (Even, unlabored) - Routine Abdominal Exam Present: soft (Round, mild tenderness but otherwise no abdominal pain) - Routine Skin Exam Present: intact - Routine Neurological Exam Present: alert <Genna Dumont - Last Filed: 06/06/18 18:14> Vital signs: Vital Signs 06/06/18 00:00 06/06/18 08:00 06/06/18 09:44 Temperature 98.7 F 98.1 F Pulse Rate 85 95 H Respiratory Rate 18 18 16 Blood Pressure 131/73 140/63 Pulse Oximetry 93 L 91 L 06/06/18 12:00 06/06/18 15:41 06/06/18 15:45 Temperature 98.8 F 98.4 F Pulse Rate 82 87 103 H Respiratory Rate 18 12 18 Blood Pressure 113/75 100/54 L 106/57 L Pulse Oximetry 95 89 L 93 L 06/06/18 16:00 06/06/18 16:15 06/06/18 18:16 Temperature 97.4 F L 97.2 F L Pulse Rate 92 H 93 H 88 Respiratory Rate 18 17 18 Blood Pressure 100/56 L 98/55 L 110/67 Pulse Oximetry 93 L 93 L 92 L Intake & Output 06/06/18 06/06/18 06/07/18 06:59 18:59 06:59 Intake Total 1100 / 1100 1050 / 1050 Output Total 5 / 5 Balance 1100 / 1100 1045 / 1045 Weight 54.89 kg Intake: IV 1100 / 1100 350 / 350 NS Inj 1,000 ML @ 70 mls/hr IV. 1000 / 1000 CONT .[id number] THOMAS Rx#: [id number] Zosyn 3.375 GM Premix 50 ML @ 100 / 100 50 / 50 100 mls/hr IV.SIG Q8H THOMAS Rx#: [id number] KCl 20 mEq Premix Inj 20 meq In 100 / 100 100 ml @ 50 mls/hr IV.SIG Q2H THOMAS Rx#:[id number] Flagyl 500 MG Inj 100 ML @ 100 200 / 200 mls/hr IV.SIG Q8H THOMAS Rx#: [id number] Anesthesia Amount 700 / 700 Output: Estimated Blood Loss 5 / 5 Other: # Voids 3 Date of Last Bowel Movement 06/02/18 06/02/18 <Jeane Mcclure - Last Filed: 06/06/18 21:29> Results - Labs CBC & Chem 7: 06/06/18 07:30 06/06/18 07:30 Laboratory Results - last 24 hr 06/06/18 06/06/18 06/06/18 07:30 07:30 07:30 WBC 16.7 H RBC 4.62 Hgb 14.7 Hct 44.5 MCV 96.3 MCH 31.9 MCHC 33.1 RDW 13.9 Plt Count 131 L MPV 11.1 H Neut % (Auto) 86.8 H Lymph % (Auto) 5.5 L [place] % (Auto) 7.6 Eos % (Auto) 0.0 Baso % (Auto) 0.1 Neut # (Auto) 14.5 H Lymph # (Auto) 0.9 L [place] # (Auto) 1.3 H Eos # (Auto) 0.0 Baso # (Auto) 0.0 WBC Differential . Differential Comment Auto diff final PT 11.9 H INR 1.2 Sodium 146 H Potassium 3.2 L Chloride 112 H Carbon Dioxide 24.6 Anion Gap 9 BUN 18 Creatinine 0.66 Estimated GFR Greater than 89 Random Glucose 109 H Calcium 7.7 L Total Bilirubin Direct Bilirubin Indirect Bilirubin AST ALT Alkaline Phosphatase Total Protein Albumin 06/06/18 11:28 WBC RBC Hgb Hct MCV MCH MCHC RDW Plt Count MPV Neut % (Auto) Lymph % (Auto) [place] % (Auto) Eos % (Auto) Baso % (Auto) Neut # (Auto) Lymph # (Auto) [place] # (Auto) Eos # (Auto) Baso # (Auto) WBC Differential Differential Comment PT INR Sodium Potassium Chloride Carbon Dioxide Anion Gap BUN Creatinine Estimated GFR Random Glucose Calcium Total Bilirubin 1.1 H Direct Bilirubin 0.4 H Indirect Bilirubin 0.7 AST 42 H ALT 93 H Alkaline Phosphatase 70 Total Protein 5.9 L Albumin 2.5 L - Imaging Impressions Hepatobiliary Scan Nuclear Medicine 06/05/18 00:00 CONCLUSION: 1. Nonvisualization of the gallbladder consistent with acute cholecystitis. Delayed imaging is to be performed <Genna Dumont - Last Filed: 06/06/18 18:14> - Labs CBC & Chem 7: 06/06/18 07:30 06/06/18 07:30 Laboratory Results - last 24 hr 06/06/18 06/06/18 06/06/18 07:30 07:30 07:30 WBC 16.7 H RBC 4.62 Hgb 14.7 Hct 44.5 MCV 96.3 MCH 31.9 MCHC 33.1 RDW 13.9 Plt Count 131 L MPV 11.1 H Neut % (Auto) 86.8 H Lymph % (Auto) 5.5 L [place] % (Auto) 7.6 Eos % (Auto) 0.0 Baso % (Auto) 0.1 Neut # (Auto) 14.5 H Lymph # (Auto) 0.9 L [place] # (Auto) 1.3 H Eos # (Auto) 0.0 Baso # (Auto) 0.0 WBC Differential . Differential Comment Auto diff final PT 11.9 H INR 1.2 Sodium 146 H Potassium 3.2 L Chloride 112 H Carbon Dioxide 24.6 Anion Gap 9 BUN 18 Creatinine 0.66 Estimated GFR Greater than 89 Random Glucose 109 H Calcium 7.7 L Total Bilirubin Direct Bilirubin Indirect Bilirubin AST ALT Alkaline Phosphatase Total Protein Albumin 06/06/18 11:28 WBC RBC Hgb Hct MCV MCH MCHC RDW Plt Count MPV Neut % (Auto) Lymph % (Auto) [place] % (Auto) Eos % (Auto) Baso % (Auto) Neut # (Auto) Lymph # (Auto) [place] # (Auto) Eos # (Auto) Baso # (Auto) WBC Differential Differential Comment PT INR Sodium Potassium Chloride Carbon Dioxide Anion Gap BUN Creatinine Estimated GFR Random Glucose Calcium Total Bilirubin 1.1 H Direct Bilirubin 0.4 H Indirect Bilirubin 0.7 AST 42 H ALT 93 H Alkaline Phosphatase 70 Total Protein 5.9 L Albumin 2.5 L - Imaging Impressions Hepatobiliary Scan Nuclear Medicine 06/05/18 00:00 CONCLUSION: 1. Nonvisualization of the gallbladder consistent with acute cholecystitis. Delayed imaging is to be performed <Jeane Mcclure - Last Filed: 06/06/18 21:29> Assessment and Plan (1) Acute cholecystitis Status: Acute Code(s): K81.0 - Acute cholecystitis - Plan Patient was transferred over to [place] from [place] late Monday evening on 06/03/2018. Patient was followed and seen per Dr. Bratu at [facility] and was transitioned for ERCP. Abdominal pain left upper quadrant and right upper quadrant with symptoms of nausea still fairly constant and diffuse requiring pain medicines Acute cholecystitis per HIDA scan performed today on 06/05/2018. Patient is status post ERCP on 06/04/2018 but was unable to cannulate ampulla. Consider surgical evaluation ordered LFTs gradual decrease today with AST 62 ALT 110 Nausea but no current vomiting, patient upgraded to clear liquids today for trial 06/06/2018, patient is resting in the bed but more alert and states she feels so much better. She is status post lap Gena. Current hemoglobin 14.7 patient denies any nausea and vomiting and is able to tolerate some liquids and soft foods. Encourage patient to move around and sit in chair. GI will sign off patient is in her postop. And is having no obvious nausea vomiting or GI symptoms for now. We will see her on an outpatient basis if needed Patient was seen per myself and Dr. Mcclure, note was written on his behalf <Genna Dumont - Last Filed: 06/06/18 18:14> (1) Acute cholecystitis Status: Acute Code(s): K81.0 - Acute cholecystitis - Attending Attestation Plan as above, please notify us if needed again. <Jeane Mcclure - Last Filed: 06/06/18 21:29>
[2018-06-07] MEDS: Piperacil/Tazo 3.375 GM Premix 50 ML IV.SIG SCH ×3 (03:20→09:29)
[2018-06-07] MEDS: HYDROmorphone PF Inj 2 MG/ML Vial IV.PUSH PRN (03:22)
[2018-06-07 06:54] LABS: Baso % (Auto) 0.1 % (0.0-2.0); Hematocrit 40.5 % (35.0-46.0); Hemoglobin 13.5 gm/dL (11.6-15.3); Lymph # (Auto) 0.7 th/mm3 (1.0-4.8); Lymph % (Auto) 4.8 % (9.0-44.0); Mean Corpuscular HGB Conc 33.4 % (32.0-36.0); Mean Corpuscular Hemoglobin 31.6 pg (27.0-34.0); Mean Corpuscular Volume 94.6 fL (80.0-100.0); Mean Platelet Volume 11.3 fL (7.0-11.0); Mono % (Auto) 7.5 % (0.0-8.0); Neut % (Auto) 87.6 % (16.0-70.0); Platelet Count 127 th/mm3 (150-450); Red Blood Count 4.28 mil/mm3 (4.00-5.30); Red Cell Distribution Width 13.8 % (11.6-17.2); White Blood Count 13.6 th/mm3 (4.0-11.0)
[2018-06-07 07:06] LABS: Anion Gap 9 meq/L (5-15); Blood Urea Nitrogen 15 mg/dL (7-18); Calcium 7.4 mg/dL (8.5-10.1); Carbon Dioxide 24.6 meq/L (21.0-32.0); Chloride 111 meq/L (98-107); Glomerular Filtration Rate Greater Than 89 mL/min (>89); Glucose,Random 174 mg/dL (74-106); Potassium 3.4 meq/L (3.5-5.1); Sodium 145 meq/L (136-145)
[2018-06-07 07:22] LABS: Total Protein 5.9 g/dL (6.4-8.2)
[2018-06-07] MEDS: Sod Chloride 0.9% Inj 1,000 ML IV.CONT SCH (07:38)
--- NOTE | 2018-06-07 08:40 | P.DS ---
Date of admission: 06/03/18 00:11 Primary care physician: Santiago Stewart DO Attending physician on discharge: Mayur Grimm Anticipated date of discharge: 06/07/18 Brief History from admission: 63-year-old female with no significant past medical history who presented to the emergency department because acute onset of abdominal pain with intractable nausea vomiting. Patient states that she was at a birthday libertarian and she ate some potato chips and shortly after that she started developing epigastric abdominal pain which did not radiate into her back, flank or lower abdomen. She started developing intractable nausea and vomiting until she had dry heaves. Because she did not improve she came to emergency department for evaluation. Patient had CT scan done of her abdomen which did show severely intra-hepatic and extrahepatic biliary ductal dilatation, no gallstones are identified. Because of those reasons is recommended by the ER physician of the patient be observed in the hospital for further evaluation and management. Patient states that her nausea and vomiting completely resolved by 9 PM last night. Patient is no longer painful. Patient denied any hematemesis , diarrhea, constipation, melena, hematochezia. DS: Diagnosis - Discharge Diagnosis (1) Abdominal pain Status: Acute (2) Acute cholecystitis Status: Acute DS: Medications - Discharge Medications Prescriptions: hydrocodone-acetaminophen 1 tab PO Q4H PRN #18 tab PRN Reason: Acute Pain sennosides-docusate sodium [Senna Plus] 1 tab PO BID #14 tab DS: Summary Hospital Course: 63-year-old female with no significant past medical history who presented to the emergency department because acute onset of abdominal pain with intractable nausea vomiting. CT scan does show significant intra-and extrahepatic ductal dilatation. MRCP performed and indicates intrahepatic biliary duct dilatation. Common bile duct measures 7 mm with fusiform narrowing at the ampulla. GI consulted for further recommendations, performed ERCP, unable to cannulate ampulla. Ultrasound of the gallbladder showed 1. Contracted gallbladder with single 5 mm gallstone. No definitive sonographic evidence for acute cholecystitis. 2. Prominent common bile duct measuring up to 10 mm. No definite etiology by ultrasound. HIDA scan nonvisualization of the gallbladder consistent with acute cholecystitis. It was treated with pain medications, antiemetics. Patient was started on IV Zosyn, IV Flagyl. General surgery has been consulted for acute cholecystitis. Patient underwent laparoscopic cholecystectomy 06/06/[address] Lion. Postop tolerating diet. She will continue with short-term pain medication 3 days. Encouraged to be ambulating and walking around. Follow-up with general surgery and outpatient. Follow-up with her PCP and outpatient. Patient has met maximal benefits of hospitalization. Clinically stable for discharge. - Time Spent with Patient Total time spent providing and/or coordinating discharge services: Less than 30 minutes - Quality: VTE Deep Vein Thrombosis/Pulmonary Embolism Present on Admission: No Exam Vital signs: Vital Signs 06/06/18 09:44 06/06/18 12:00 06/06/18 15:41 Temperature 98.8 F 98.4 F Pulse Rate 82 87 Respiratory Rate 16 18 12 Blood Pressure 113/75 100/54 L Pulse Oximetry 95 89 L 06/06/18 15:45 06/06/18 16:00 06/06/18 16:15 Temperature 97.4 F L Pulse Rate 103 H 92 H 93 H Respiratory Rate 18 18 17 Blood Pressure 106/57 L 100/56 L 98/55 L Pulse Oximetry 93 L 93 L 93 L 06/06/18 18:16 06/06/18 20:00 06/07/18 00:00 Temperature 97.2 F L 97.8 F 98.2 F Pulse Rate 88 85 77 Respiratory Rate 18 18 18 Blood Pressure 110/67 108/69 107/64 Pulse Oximetry 92 L 93 L 91 L 06/07/18 04:00 Temperature 98.1 F Pulse Rate 91 H Respiratory Rate 18 Blood Pressure 118/69 Pulse Oximetry 92 L Intake & Output 06/06/18 06/07/18 06/07/18 18:59 06:59 18:59 Intake Total 1050 / 1050 200 / 200 Output Total 5 / 5 Balance 1045 / 1045 200 / 200 Intake: IV 350 / 350 200 / 200 Zosyn 3.375 GM Premix 50 ML @ 50 / 50 100 / 100 100 mls/hr IV.SIG Q8H THOMAS Rx#: [id number] KCl 20 mEq Premix Inj 20 meq In 100 / 100 100 ml @ 50 mls/hr IV.SIG Q2H THOMAS Rx#:[id number] Flagyl 500 MG Inj 100 ML @ 100 200 / 200 100 / 100 mls/hr IV.SIG Q8H THOMAS Rx#: [id number] Anesthesia Amount 700 / 700 Output: Estimated Blood Loss 5 / 5 Other: Date of Last Bowel Movement 06/02/18 06/02/18 Narrative: GENERAL: This is a well-nourished, well-developed patient, in no apparent distress. SKIN: Warm and dry. HEENT: Normocephalic. Pupils equal round and reactive. Nose without bleeding. Airway patent. NECK: Trachea midline. CARDIOVASCULAR: Regular rate and rhythm without murmurs, gallops, or rubs. RESPIRATORY: Clear to auscultation. Breath sounds equal bilaterally. No wheezes , rales, or rhonchi. GASTROINTESTINAL: Abdomen soft, nondistended. Bowel Sounds normoactive x4. Mild tenderness to the laparoscopic incision sites. Incision sites Steri- Strips clean dry and intact. MUSCULOSKELETAL: Extremities without clubbing, cyanosis, or edema. NEUROLOGICAL: Awake and alert. No focal neuro deficit. Moves all extremities. Normal speech. Results Procedures completed during hospitalization: Status post laparoscopic cholecystectomy, 06/06/18 Pending studies at discharge: Pending at discharge 06/06/18 07:41 Surgical [PTH] Routine Labs on day of discharge: Labs from last 24 hours 06/07/18 06/07/18 06/06/18 05:13 05:13 11:28 WBC 13.6 H RBC 4.28 Hgb 13.5 Hct 40.5 MCV 94.6 MCH 31.6 MCHC 33.4 RDW 13.8 Plt Count 127 L MPV 11.3 H Neut % (Auto) 87.6 H Lymph % (Auto) 4.8 L [place] % (Auto) 7.5 Eos % (Auto) 0.0 Baso % (Auto) 0.1 Neut # (Auto) 12.0 H Lymph # (Auto) 0.7 L [place] # (Auto) 1.0 H Eos # (Auto) 0.0 Baso # (Auto) 0.0 WBC Differential . Differential Comment Auto diff final Sodium 145 Potassium 3.4 L Chloride 111 H Carbon Dioxide 24.6 Anion Gap 9 BUN 15 Creatinine 0.59 Estimated GFR Greater than 89 Random Glucose 174 H Calcium 7.4 L* Prot Corrected Calcium 8.1 L Total Bilirubin 1.1 H Direct Bilirubin 0.4 H Indirect Bilirubin 0.7 AST 42 H ALT 93 H Alkaline Phosphatase 70 Total Protein 5.9 L 5.9 L Albumin 2.5 L 06/06/18 07:30 WBC RBC Hgb Hct MCV MCH MCHC RDW Plt Count MPV Neut % (Auto) Lymph % (Auto) [place] % (Auto) Eos % (Auto) Baso % (Auto) Neut # (Auto) Lymph # (Auto) [place] # (Auto) Eos # (Auto) Baso # (Auto) WBC Differential Differential Comment Sodium 146 H Potassium 3.2 L Chloride 112 H Carbon Dioxide 24.6 Anion Gap 9 BUN 18 Creatinine 0.66 Estimated GFR Greater than 89 Random Glucose 109 H Calcium 7.7 L Prot Corrected Calcium Total Bilirubin Direct Bilirubin Indirect Bilirubin AST ALT Alkaline Phosphatase Total Protein Albumin - Impressions ITS Impressions Abdomen/Pelvis CT 06/02/18 22:38 CONCLUSION: 1. Moderate severity diffuse intrahepatic and extrahepatic biliary ductal dilatation. No mass identified. No calcified gallstones identified. 2. Mild hepatic steatosis. 3. Lumbar spine facet arthrosis. Cholangiopancreatography MRI 06/03/18 00:00 CONCLUSION: 1. Mild intrahepatic biliary duct dilatation. 2. Common bile duct measures 7 mm in the midportion with fusiform narrowing at the ampulla. Gallbladder Ultrasound 06/05/18 00:00 CONCLUSION: Cholelithiasis Echogenic liver compatible with fatty infiltration or hepatocellular disease. Echogenic right kidney compatible with medical renal disease. Hepatobiliary Scan Nuclear Medicine 06/05/18 00:00 CONCLUSION: 1. Nonvisualization of the gallbladder consistent with acute cholecystitis. Delayed imaging is to be performed Discharge Plan - Discharge Disposition Patient Disposition: 01 Discharge Home - Discharge Condition Condition: Stable - Discharge Order Discharge Orders: Discharge Order (Routine); Ordered 06/07/18 Ordered By: Shai Wilcox - Discharge Details Discharge Comment: DC when tolerating diet and cleared by - Physicians Team Primary Care Provider: Santiago Stewart Attending Provider: Mayur Grimm Other Providers: Airam Peñaloza MD ; Alfredo Lion MD ; Surgeons,[facility]
[2018-06-07] MEDS: Senna/Docusate Sodium 8.6/50 MG Tablet PO SCH (08:46)
[2018-06-07 10:30] LABS: Albumin 2.4 g/dL (3.4-5.0)
[2018-06-07 10:32] LABS: Total Protein 5.8 g/dL (6.4-8.2)
[2018-06-07 13:15] VITALS: RESP 17
[2018-06-07] MEDS: Sucralfate Liq 1 GM/10 ML UDC PO PRN (13:53)
[2018-06-07] MEDS ORDERED: Simethicone 125 MG Chew Tablet PO ONE (14:20)
[2018-06-07 15:38] VITALS: BP 123/74; PULSE 79; TEMP 97.6; O2SAT 94
--- NOTE | 2018-06-07 16:47 | P.PNGS ---
<Puja Ag - Last Filed: 06/07/18 16:45> Subjective Interval history: Ambulating in room; feels like she has "gas pains" Physical Exam Vital signs: Vital Signs 06/06/18 18:16 06/06/18 20:00 06/07/18 00:00 Temperature 97.2 F L 97.8 F 98.2 F Pulse Rate 88 85 77 Respiratory Rate 18 18 18 Blood Pressure 110/67 108/69 107/64 Pulse Oximetry 92 L 93 L 91 L 06/07/18 04:00 06/07/18 08:00 06/07/18 13:14 Temperature 98.1 F 97.5 F L 97.2 F L Pulse Rate 91 H 84 86 Respiratory Rate 18 20 17 Blood Pressure 118/69 144/74 H 130/60 Pulse Oximetry 92 L 92 L 93 L 06/07/18 15:34 Temperature 97.6 F Pulse Rate 79 Respiratory Rate 17 Blood Pressure 123/74 Pulse Oximetry 94 L Intake & Output 06/06/18 06/07/18 06/07/18 18:59 06:59 18:59 Intake Total 1050 / 1050 200 / 200 200 / 200 Output Total 5 / 5 Balance 1045 / 1045 200 / 200 200 / 200 Intake: IV 350 / 350 200 / 200 200 / 200 Zosyn 3.375 GM Premix 50 ML @ 50 / 50 100 / 100 100 / 100 100 mls/hr IV.SIG Q8H THOMAS Rx#: [id number] KCl 20 mEq Premix Inj 20 meq In 100 / 100 100 ml @ 50 mls/hr IV.SIG Q2H THOMAS Rx#:[id number] Flagyl 500 MG Inj 100 ML @ 100 200 / 200 100 / 100 100 / 100 mls/hr IV.SIG Q8H THOMAS Rx#: [id number] Anesthesia Amount 700 / 700 Output: Estimated Blood Loss 5 / 5 Other: Date of Last Bowel Movement 06/02/18 06/02/18 06/02/18 Narrative: Ambulating in room; no acute distress Cardio: RRR Resp: CTAB Abd: lap sites c/d/i with Bandaids in place; minimal post op pain; non distended Assessment and Plan - Assessment (1) Elevated WBC count Code(s): D72.829 - Elevated white blood cell count, unspecified Status: Acute (2) RUQ pain Code(s): R10.11 - Right upper quadrant pain Status: Acute (3) Abdominal pain Code(s): R10.9 - Unspecified abdominal pain Status: Acute (4) Acute cholecystitis Code(s): K81.0 - Acute cholecystitis Status: Acute - Plan 63 year old female with abdominal pain; concerning for acute cholecystitis -POD1 lap marbella -Advance to regular diet -Pain control -Follow up with Dr. Hamlin June 14 at 9:50AM -GS clear for DC <Alfredo Hamlin - Last Filed: 06/07/18 17:23> Physical Exam Vital signs: Vital Signs 06/06/18 18:16 06/06/18 20:00 06/07/18 00:00 Temperature 97.2 F L 97.8 F 98.2 F Pulse Rate 88 85 77 Respiratory Rate 18 18 18 Blood Pressure 110/67 108/69 107/64 Pulse Oximetry 92 L 93 L 91 L 06/07/18 04:00 06/07/18 08:00 06/07/18 13:14 Temperature 98.1 F 97.5 F L 97.2 F L Pulse Rate 91 H 84 86 Respiratory Rate 18 20 17 Blood Pressure 118/69 144/74 H 130/60 Pulse Oximetry 92 L 92 L 93 L 06/07/18 15:34 Temperature 97.6 F Pulse Rate 79 Respiratory Rate 17 Blood Pressure 123/74 Pulse Oximetry 94 L Intake & Output 06/06/18 06/07/18 06/07/18 18:59 06:59 18:59 Intake Total 1050 / 1050 200 / 200 200 / 200 Output Total 5 / 5 Balance 1045 / 1045 200 / 200 200 / 200 Intake: IV 350 / 350 200 / 200 200 / 200 Zosyn 3.375 GM Premix 50 ML @ 50 / 50 100 / 100 100 / 100 100 mls/hr IV.SIG Q8H THOMAS Rx#: [id number] KCl 20 mEq Premix Inj 20 meq In 100 / 100 100 ml @ 50 mls/hr IV.SIG Q2H THOMAS Rx#:[id number] Flagyl 500 MG Inj 100 ML @ 100 200 / 200 100 / 100 100 / 100 mls/hr IV.SIG Q8H THOMAS Rx#: [id number] Anesthesia Amount 700 / 700 Output: Estimated Blood Loss 5 / 5 Other: Date of Last Bowel Movement 06/02/18 06/02/18 06/02/18 Assessment and Plan - Assessment (1) S/P laparoscopic cholecystectomy Code(s): Z90.49 - Acquired absence of other specified parts of digestive tract Status: Acute (2) Elevated WBC count Code(s): D72.829 - Elevated white blood cell count, unspecified Status: Acute (3) RUQ pain Code(s): R10.11 - Right upper quadrant pain Status: Acute (4) Abdominal pain Code(s): R10.9 - Unspecified abdominal pain Status: Acute (5) Acute cholecystitis Code(s): K81.0 - Acute cholecystitis Status: Acute - Attending Attestation NOTE FOR SURGICAL ATTENDING, DR. ALFREDO HAMLIN I agree with above assessment and plan. The exam, history, and the medical decision-making described in the above note were completed with the assistance of the mid-level provider. I reviewed and agree with the findings presented. I attest that I had a [id number] encounter with the patient on the same day, and personally performed and documented my assessment and findings in the medical record. The following services were provided during this hospital visit: Chart data review, vital sign assessments/reviewing monitor data Review of consultations notes if present. Medication orders/review and/or management Ordering and/or reviewing lab tests Ordering and/or interpreting/reviewing x-rays and/or diagnostic studies Care of the patient and discussion of the patient with the care team Documentation time To help prompt me to consider important information that might be impacting today's encounter and assessment, Information from prior notes written by myself or my colleagues may have been "brought forward/copy and pasted" into today's note. <Puja Ag - Last Filed: 06/07/18 16:45> (3) Abdominal pain Qualifiers: Abdominal location: right upper quadrant Qualified Code(s): R10.11 - Right upper quadrant pain <Alfredo Hamlin - Last Filed: 06/07/18 17:23> (4) Abdominal pain Qualifiers: Abdominal location: right upper quadrant Qualified Code(s): R10.11 - Right upper quadrant pain
== END 2018-06-07 16:53 | disposition home or self-care (01) ==
LOC: PHED 20:55 → N06 20:55 → PHEDA 20:55 → PH3 06-03 07:54 → N06 06-03 21:59
PROVIDERS: ADMIT Hospitalist; ATTEND Hospitalist

== ENCOUNTER 2018-06-08 18:20 | Inpatient (IN) ==
[2018-06-08] MEDS ORDERED: HYDROmorphone PF Inj 2 MG/ML Vial IV.PUSH ONE ×3 (20:11→23:25)
[2018-06-08] MEDS ORDERED: Sod Chloride 0.9% Inj 1,000 ML IV.SIG ONE (20:11)
--- NOTE | 2018-06-08 20:28 | ED ---
HPI General Chief Complaint: Abdominal Pain Stated Complaint: post op pain Time Seen by Provider: 06/08/18 20:05 Source: patient, family, RN notes reviewed and old records reviewed Mode of arrival: ambulatory History of Present Illness HPI narrative: 63yF sent in by surgeon for abdominal pain. The patient states that she had an ERCP with attempted stent placement on 06/04/18 followed by laparoscopic cholecystectomy 2 days ago for gallstones, and was discharged home yesterday. She states that last night, she began to have gradual onset severe RUQ pain which is "sharp", non-radiating, constant, worse with any movement, associated with nausea, multiple episodes of bilious emesis, and loose watery stools. Denies fever or chills. Family history non-contributory, surgeon is Dr. Lion. Related Data Previous Rx's Medication Instructions Recorded ciprofloxacin HCl [Cipro] 500 mg PO BID 5 Days #10 tab 06/07/18 hydrocodone-acetaminophen 1 tab PO Q4H PRN #18 tab 06/07/18 metronidazole [Flagyl] 500 mg PO TID 5 Days #30 tab 06/07/18 ondansetron [Zofran ODT] 4 mg PO Q6-8H PRN #10 tab 06/07/18 sennosides-docusate sodium [Senna 1 tab PO BID #14 tab 06/07/18 Plus] Allergies Allergy/AdvReac Type Severity Reaction Status Date / Time No Known Allergies Allergy Verified 06/03/18 11:04 Review of Systems Except as stated in HPI: all other systems reviewed are negative Constitutional Denies fever(s) Eyes Denies blurry vision ENT Denies nasal congestion Cardiovascular Denies chest pain Respiratory Denies dyspnea Gastrointestinal Reports diarrhea, Reports nausea and Reports vomiting Genitourinary Denies urinary urgency Integumentary/Breasts Denies rash Neurologic Denies confusion [facility] Medical History Medical History No significant past medical history (Acute) Family History Family History Other Family history non-contributory Social History Social History Substance History: No History of Abuse Second Hand Smoke Exposure: No Smoking Status: Current some day smoker Tobacco Type: Cigarettes How Often Do You Have a Drink Containing Alcohol: 2 to 4 times a month Recent Travel in [place] within the Last 8 Weeks: No Recent Out of Country Travel within the Last 8 Weeks: No Immunization History Tetanus Immunization: <5 Years Hx Influenza Vaccine This Season: No Exam Const Other: Moderate painful distress, unable to find a position of comfort HENOR Head: normocephalic and atraumatic Face and sinus: normal facial exam Other: Mucosa dry Eyes General: appearance normal, both eyes and all related structures Pupils: PERRL Chest Chest: normal inspection of the chest Resp Effort & Inspection: normal respiratory effort Auscultation: no rhonchi and no wheezes Cardio Rate: regular rate Rhythm: regular rhythm GI Other: Soft, minimally distended, Steri-strips in place over laparoscopic surgical incisions which are clean/ dry/ intact, ecchymoses surrounding incisional sites, moderately tender in epigastrium/ RUQ with guarding, no rebound Skin General: no rashes or lesions noted Neuro General: alert, awake, oriented x3 and no focal motor deficits Psych Affect: normal affect Course Consultations Consultation #1: Case discussed with Dr. Jimenez (general surgery), who is aware of patient. I will call him back if patient is found to have emergent surgical pathology found on CT scan; otherwise, his team will see the patient in the AM if she requires admission. Time: 20:35 Initial Documented Vital Signs Temperature 98 F 06/08/18 18:49 Pulse Rate 83 06/08/18 18:49 Respiratory Rate 22 06/08/18 18:49 Blood Pressure 134/75 06/08/18 18:49 Pulse Oximetry 96 06/08/18 18:49 Last Documented Vital Signs Temperature 98 F 06/08/18 18:49 Pulse Rate 74 06/08/18 23:37 Respiratory Rate 14 06/08/18 23:37 Blood Pressure 145/83 H 06/08/18 23:37 Pulse Oximetry 96 06/08/18 23:37 Medical Decision Making [facility] Narrative Medical decision making narrative: Assessment: 63yF presenting with abdominal pain, N/V/D following ERCP and cholecystectomy Plan: Pain control IV fluids Labs, including LFTs and lipase CT abd/ pelvis Reassess Addendum: Patient found to have acute pancreatitis. This patient cannot go home as her pain was not controlled with outpatient management and she is also unable to tolerate PO intake; she will need IV hydration, pain control, and re- evaluation at frequent intervals. I informed the patient of the results of all labs and imaging as well as plan to keep her in the hospital; she understands and agrees. Case discussed with Dr. Siddiqui. Differential Diagnosis Differential Diagnosis: Differential diagnosis includes, but is not limited to: post-op complication (seroma, hematoma, perforation, leak), pancreatitis, ileus Lab Data Lab results reviewed: Yes I reviewed the patient's lab results. Result diagrams: 06/08/18 20:25 06/08/18 20:20 Lab Results 06/08/18 06/08/18 Range/Units 20:20 20:25 WBC 13.8 H (4.0-11.0) th/mm3 RBC 4.36 (4.00-5.30) mil/mm3 Hgb 13.5 (11.6-15.3) gm/dL Hct 40.9 (35.0-46.0) % MCV 93.7 (80.0-100.0) fL MCH 30.9 (27.0-34.0) pg MCHC 33.0 (32.0-36.0) % RDW 13.9 (11.6-17.2) % Plt Count 159 (150-450) th/mm3 MPV 10.2 (7.0-11.0) fL Prelim Diff (Auto) Slide review pending Neut % (Auto) 83.9 H (16.0-70.0) % Lymph % (Auto) 7.5 L (9.0-44.0) % [place] % (Auto) 8.4 H (0.0-8.0) % Eos % (Auto) 0.1 (0.0-4.0) % Baso % (Auto) 0.1 (0.0-2.0) % Neut # (Auto) 11.6 H (1.8-7.7) th/mm3 Lymph # (Auto) 1.0 (1.0-4.8) th/mm3 [place] # (Auto) 1.2 H (0.0-0.9) th/mm3 Eos # (Auto) 0.0 (0.0-0.4) th/mm3 Baso # (Auto) 0.0 (0.0-0.2) th/mm3 WBC Differential . Diff Scan Auto diff confirmed Differential Comment . Platelet Estimate Normal (Normal) Platelet Morphology Normal (Normal) Sodium 140 (136-145) meq/L Potassium 3.5 (3.5-5.1) meq/L Chloride 104 (98-107) meq/L Carbon Dioxide 26.9 (21.0-32.0) meq/L Anion Gap 9 (5-15) meq/L BUN 11 (7-18) mg/dL Creatinine 0.51 (0.50-1.00) mg/dL Estimated GFR Greater than 89 (>89) mL/min Random Glucose 118 H (74-106) mg/dL Calcium 7.8 L (8.5-10.1) mg/dL Total Bilirubin 1.3 H (0.2-1.0) mg/dL AST 198 H (15-37) U/L ALT 180 H (10-53) U/L Alkaline Phosphatase 110 (45-117) U/L Total Protein 6.1 L (6.4-8.2) g/dL Albumin 2.4 L (3.4-5.0) g/dL Lipase 98 (73-393) U/L Imaging Data Radiologist's impression: Abdomen/Pelvis CT 06/08/18 20:11 CONCLUSION: 1. Very prominent inflammatory change seen around the pancreas consistent with acute pancreatitis. 2. The patient is status post cholecystectomy. There is persistent biliary duct dilatation. 3. Hepatic steatosis. 4. Bilateral lower lobe atelectasis or consolidation being worse on the left with bilateral pleural effusions being worse on the left. Discharge Plan Discharge Disposition Patient Disposition: 30 Still Patient Discharge Condition Condition: Stable Discharge Details Diagnosis: Acute pancreatitis Physicians Team ED Provider: Kitty Saleh Primary Care Provider: Santiago Stewart Attending Provider: Adelita Siddiqui Discharge Interventions Interventions: Vital Signs Last Done: 06/08/18 23:37 Status ED Status: Admitted Patient
[2018-06-08 20:38] LABS: Baso % (Auto) 0.1 % (0.0-2.0); Eos % (Auto) 0.1 % (0.0-4.0); Hematocrit 40.9 % (35.0-46.0); Hemoglobin 13.5 gm/dL (11.6-15.3); Lymph % (Auto) 7.5 % (9.0-44.0); Mean Corpuscular Hemoglobin 30.9 pg (27.0-34.0); Mean Corpuscular Volume 93.7 fL (80.0-100.0); Mean Platelet Volume 10.2 fL (7.0-11.0); Mono # (Auto) 1.2 th/mm3 (0.0-0.9); Mono % (Auto) 8.4 % (0.0-8.0); Neut # (Auto) 11.6 th/mm3 (1.8-7.7); Neut % (Auto) 83.9 % (16.0-70.0); Platelet Count 159 th/mm3 (150-450); Red Blood Count 4.36 mil/mm3 (4.00-5.30); Red Cell Distribution Width 13.9 % (11.6-17.2); White Blood Count 13.8 th/mm3 (4.0-11.0)
[2018-06-08 20:59] LABS: Alanine Aminotransferase 180 U/L (10-53); Albumin 2.4 g/dL (3.4-5.0); Alkaline Phosphatase 110 U/L (45-117); Anion Gap 9 meq/L (5-15); Aspartate Aminotransferase 198 U/L (15-37); Blood Urea Nitrogen 11 mg/dL (7-18); Calcium 7.8 mg/dL (8.5-10.1); Carbon Dioxide 26.9 meq/L (21.0-32.0); Chloride 104 meq/L (98-107); Glomerular Filtration Rate Greater Than 89 mL/min (>89); Glucose,Random 118 mg/dL (74-106); Lipase 98 U/L (73-393); Sodium 140 meq/L (136-145); Total Protein 6.1 g/dL (6.4-8.2)
[2018-06-08 21:16] LABS: Potassium 3.5 meq/L (3.5-5.1)
[2018-06-08 21:41] LABS: Platelet Estimate Normal (Normal); Platelet Morphology Normal (Normal)
--- NOTE | 2018-06-08 21:59 | CT ---
XAM DATE: 06/08/2018 9:47 PM EDT AGE/SEX: 63 years / Female INDICATIONS: Abdominal pain post cholecystectomy. CLINICAL DATA: This is the patient's subsequent encounter. Patient reports that signs and symptoms h ave been present for 3 days and indicates a pain score of 8/10. MEDICAL/SURGICAL HISTORY: None. Cholecystectomy. ORAL CONTRAST: No oral contrast ingested. RADIATION DOSE: 6.71 CTDI (mGy) COMPARISON: [facility], CT ABDOMEN & PELVIS W CONTRAST, 06/02/2018. . TECHNIQUE: Multiple contiguous axial images were obtained through the abdomen and pelvis following b olus infusion of 95 ml Omnipaque 350 (iohexol) nonionic water-soluble contrast as a single exam dos e. No oral contrast ingested. Using automated exposure control and adjustment of the mA and/or kV ac cording to patient size, radiation dose was kept as low as reasonably achievable to obtain optimal di agnostic quality images. DICOM format image data is available electronically for review and comparis on. FINDINGS: Lower Lungs: There is increased density in the posterior lower lobes bilaterally being much worse on the left.. There are bilateral pleural effusions being mild on the right and moderate on the left. Liver: There is decreased density seen throughout the liver. There is dilatation of the central intra hepatic biliary ducts. The common bile duct appears dilated measuring 1.2 cm. The patient is status p ost cholecystectomy. Spleen: Homogeneous density without enlargement. Pancreas: There is induration seen around the pancreas. The pancreas itself appears grossly normal. The induration extends into the retroperitoneum and celiac region. It extends into the left paracolic gutter region and into the root of the mesentery. There is a oval potential focal fluid collection s een adjacent to the posterior inferior aspect of the stomach this could be an early pseudocyst. Kidneys: Normal in size and shape. No evidence of mass or hydronephrosis. Adrenal Glands: Unremarkable. Aorta: The aorta and proximal iliac vessels are grossly unremarkable without aneurysmal dilation. Bowel/Mesentery: The bowel loops are grossly unremarkable. The cecum and sigmoid colon have a normal configuration. Abdominal Wall: Air seen within the subcutaneous fat at the anterior abdominal wall presumably from the prior surgery. Retroperitoneum: No evidence of adenopathy in the retrocrural, para-aortic, or deep pelvic regions. Bladder: Contours are smooth. Reproductive Organs: No abnormal masses or calcifications seen. Inguinal: The inguinal region is unremarkable without evidence of adenopathy. Bony Structures: Unremarkable. CONCLUSION: 1. Very prominent inflammatory change seen around the pancreas consistent with acute pancreatitis. 2. The patient is status post cholecystectomy. There is persistent biliary duct dilatation. 3. Hepatic steatosis. 4. Bilateral lower lobe atelectasis or consolidation being worse on the left with bilateral pleural effusions being worse on the left. Electronically signed by: Eric Ken MD 06/08/2018 9:57 PM EDT
[2018-06-08] MEDS ORDERED: Acetaminophen 325 MG Tablet PO PRN (23:47)
[2018-06-08] MEDS ORDERED: Bisacodyl 10 MG Supp RECTAL PRN (23:47)
--- NOTE | 2018-06-08 23:49 | P.HPIM ---
History of Present Illness Primary Care Physician: Santiago Stewart DO History of Present Illness: This is a 63-year-old female with no significant PMH presents the ER with complaints of severe abdominal pain x2 days. Recent admit 06/03-06/07/18 for c/o abdominal pain, s/p ERCP w/ stent placement on 06/04/18 and Lap Sammi on 06/06/[address] Lion. Had been doing well postop until last night when she started to have acute onset abdominal pain. Notes epigastric and RLQ pain, severe, 10/ 10, non-radiating, associated w/ nausea, no vomiting or diarrhea. Normal BM. On arrival, BP 145/83, HR 74, O2 sat 96% on RA, Afebrile. WBC 13.8. Chemistry essentially unremarkable, LFTs mildly elevated. Lipase normal. CT Abdomen/ Pelvis with very prominent inflammatory changes around the pancreas consistent with acute pancreatitis, status post cholecystectomy with persistent biliary ductal dilatation. S/p multiple doses of IV analgesics in ER w/ persistent pain. Dr. Jimenez consulted, no emergent surgical intervention needed at this time, will see in consultation. - Diagnosis (1) Pancreatitis (2) Intractable abdominal pain (3) S/P laparoscopic cholecystectomy Inpatient Certification: I certify that the inpatient services were ordered in accordance with Medicare regulations governing the order. This includes certification that hospital inpatient services are reasonable and necessary and in the case of services not specified as inpatient-only under 42 CFR 419.22(n), that they are appropriately provided as inpatient services in accordance to with the 2-midnight benchmark under 43 CFR 412.3(e) Estimated Total Length of Stay (Days): 2 Plans for Post Hospital Care: Not yet determined Review of Systems All other systems reviewed negative except as stated in HPI [facility] - History History Provided By: Patient - Medical History Medical History: Medical History (Last Reviewed 06/08/18 @ 22:17 by Kitty Saleh DO) No significant past medical history - Family History Family History: Family History (Last Reviewed 06/08/18 @ 22:17 by Kitty Saleh DO) Other Family history non-contributory - Tobacco History Second Hand Smoke Exposure: No Tobacco Use In Past 30 Days: Yes Smoking Status: Current some day smoker Tobacco Type: Cigarettes - Alcohol History How Often Do You Have a Drink Containing Alcohol: 2 to 4 times a month - Substance Use History Substance History: No History of Abuse - Travel History Recent Travel in the [place] Within the Last 8 Weeks: No Recent Travel Out of the Country Within the Last 8 Weeks: No - Immunization History Tetanus Immunization: <5 Years Hx Influenza Vaccine This Season: No Medications and Allergies Active Medications: Active Medications Lactated Ringer's (Lr 1000 Ml Inj) 1,000 mls @ 125 mls/hr IV.CONT .Q8H THOMAS Last Admin: 06/08/18 23:36 Dose: 125 mls/hr Sodium Chloride (Ns Flush) 2 ml IV.FLUSH PRN PRN PRN Reason: FLUSH AFTER USING IV ACCESS Allergies Allergy/AdvReac Type Severity Reaction Status Date / Time No Known Allergies Allergy Verified 06/03/18 11:04 Exam Vital signs: Vital Signs 06/08/18 18:49 06/08/18 20:15 06/08/18 20:19 Temperature 98 F Pulse Rate 83 72 74 Respiratory Rate 22 18 Blood Pressure 134/75 141/78 H Pulse Oximetry 96 94 L 06/08/18 23:37 Temperature Pulse Rate 74 Respiratory Rate 14 Blood Pressure 145/83 H Pulse Oximetry 96 Intake & Output 06/08/18 06/08/18 06/09/18 06:59 18:59 06:59 Intake Total 1000 / 1000 Balance 1000 / 1000 Intake: IV 1000 / 1000 NS Inj 1,000 ML @ Wide Open IV. 1000 / 1000 SIG BOLUS ONE Rx#:[id number] Other: Date of Last Bowel Movement 06/08/18 Narrative: PE: GENERAL: Pleasant middle-aged white female in no acute distress. HEENT: PERRLA, EOMI. No scleral icterus or conjunctival pallor. No lid lag or facial droop. CARDIOVASCULAR: Regular rate and rhythm. No obvious murmurs to auscultation. No chest tenderness to palpation. RESPIRATORY: No obvious rhonchi or wheezing. Clear to auscultation. Breath sounds equal bilaterally. GASTROINTESTINAL: Abdomen soft, mildly distended, epigastric and right lower quadrant tenderness to palpation, Steri-Strips in place. BS normal. MUSCULOSKELETAL: Extremities without clubbing, cyanosis, or edema. No obvious deformities. NEUROLOGICAL: Awake, alert and oriented x4. No focal neurologic deficits. Moving both upper and lower extremities spontaneously. Results - Labs CBC & Chem 7: 06/08/18 20:25 06/08/18 20:20 Labs: Short CBC 06/08/18 Range/Units 20:25 WBC 13.8 H (4.0-11.0) th/mm3 Hgb 13.5 (11.6-15.3) gm/dL Hct 40.9 (35.0-46.0) % Plt Count 159 (150-450) th/mm3 BMP 06/08/18 20:20 Sodium 140 Potassium 3.5 Chloride 104 Carbon Dioxide 26.9 BUN 11 Creatinine 0.51 Calcium 7.8 L Liver Function 06/08/18 Range/Units 20:20 Total Bilirubin 1.3 H (0.2-1.0) mg/dL AST 198 H (15-37) U/L ALT 180 H (10-53) U/L Alkaline Phosphatase 110 (45-117) U/L Albumin 2.4 L (3.4-5.0) g/dL - Imaging Impressions Abdomen/Pelvis CT 06/08/18 20:11 CONCLUSION: 1. Very prominent inflammatory change seen around the pancreas consistent with acute pancreatitis. 2. The patient is status post cholecystectomy. There is persistent biliary duct dilatation. 3. Hepatic steatosis. 4. Bilateral lower lobe atelectasis or consolidation being worse on the left with bilateral pleural effusions being worse on the left. Caprini VTE Risk Assessment Caprini VTE Risk Assessment: No/Low Risk (score <= 1) Caprini Risk Assessment Model: Point Value = 1 Point Value = 2 Point Value = 3 Point Value = 5 Age 41-60 Minor surgery BMI > 25 kg/m2 Swollen legs Varicose veins or History of unexplained or recurrent spontaneous Oral contraceptives or hormone replacement Sepsis (< 1 month) Serious lung disease, including pneumonia (< 1 month) Abnormal pulmonary function Acute myocardial infarction Congestive heart failure (< 1 month) History of inflammatory bowel disease Medical patient at bed rest Age 61-74 Arthroscopic surgery Major open surgery (> 45 min) Laparoscopic surgery (> 45 min) Malignancy Confined to bed (> 72 hours) Immobilizing plaster cast Central venous access Age >= 75 History of VTE Family history of VTE Factor V Leiden Prothrombin 13260H Lupus anticoagulant Anticardiolipin antibodies Elevated serum homocysteine Heparin-induced thrombocytopenia Other congenital or acquired thrombophilia Stroke (< 1 month) Elective arthroplasty Hip, pelvis, or leg fracture Acute spinal cord injury (< 1 month) Prophylaxis Regimen: Total Risk Factor Score Risk Level Prophylaxis Regimen 0-1 Low Early ambulation 2 Moderate Order ONE of the following: *Sequential Compression Device (SCD) *Heparin 5000 units SQ BID 3-4 Higher Order ONE of the following medications: *Heparin 5000 units SQ TID *Enoxaparin/Lovenox 40 mg SQ daily (WT < 150 kg, CrCl > 30 mL/min) *Enoxaparin/Lovenox 30 mg SQ daily (WT < 150 kg, CrCl > 10-29 mL/min) *Enoxaparin/Lovenox 30 mg SQ BID (WT < 150 kg, CrCl > 30 mL/min) AND/OR *Sequential Compression Device (SCD) 5 or more Highest Order ONE of the following medications: *Heparin 5000 units SQ TID (Preferred with Epidurals) *Enoxaparin/Lovenox 40 mg SQ daily (WT < 150 kg, CrCl > 30 mL/min) *Enoxaparin/Lovenox 30 mg SQ daily (WT < 150 kg, CrCl > 10-29 mL/min) *Enoxaparin/Lovenox 30 mg SQ BID (WT < 150 kg, CrCl > 30 mL/min) AND *Sequential Compression Device (SCD) Assessment and Plan - Assessment (1) Pancreatitis Code(s): K85.90 - Acute pancreatitis without necrosis or infection, unspecified Status: Acute (2) Intractable abdominal pain Code(s): R10.9 - Unspecified abdominal pain Status: Acute (3) S/P laparoscopic cholecystectomy Code(s): Z90.49 - Acquired absence of other specified parts of digestive tract Status: Acute - Plan A/P: 1. Pancreatitis: Acute. Recent admit for c/o abdominal pain, s/p ERCP w/ stent placement, now w/ c/o abdominal pain, Lipase normal. CT Abd/Pelvis w/ acute pancreatitis, images reviewed by me. NPO, IVF, analgesics/antiemetics as needed. Consult GI if needed for further eval. 2. S/p Lap Sammi: cholecystectomy 06/06/[address] Lion, CT Abd/Pelvis w/ persistent biliary ductal dilatation, images reviewed, no emergent surgical intervention needed at this time. Dr. Jimenez consulted, will see in consultation as needed. 3. Intractable Abd Pain: secondary to above, s/p multiple doses of Dilaudid IV in ER w/ minimal improvement, continue analgesics/antiemetics as needed 4. DVT Prophylaxis: SCD/Teds 5. Social work for d/c planning as needed 6. Case discussed w/ ER physician at length, labs/records/imaging reviewed by me.
[2018-06-09] MEDS: Morphine Inj 4 MG/ML Vial IV.PUSH PRN ×4 (01:01→13:08)
[2018-06-09] MEDS: Temazepam 15 MG Capsule PO PRN (01:01)
[2018-06-09] MEDS: Piperacil/Tazo 4.5 GM Premix 4.5 GM/100 ML BAG IV.SIG SCH ×3 (05:40→18:42)
[2018-06-09 06:14] LABS: Baso % (Auto) 0.1 % (0.0-2.0); Eos % (Auto) 0.2 % (0.0-4.0); Hematocrit 37.8 % (35.0-46.0); Hemoglobin 12.5 gm/dL (11.6-15.3); Lymph # (Auto) 0.7 th/mm3 (1.0-4.8); Lymph % (Auto) 5.8 % (9.0-44.0); Mean Corpuscular HGB Conc 33.1 % (32.0-36.0); Mean Corpuscular Hemoglobin 31.2 pg (27.0-34.0); Mean Corpuscular Volume 94.4 fL (80.0-100.0); Mean Platelet Volume 10.9 fL (7.0-11.0); Mono # (Auto) 1.1 th/mm3 (0.0-0.9); Mono % (Auto) 8.8 % (0.0-8.0); Neut # (Auto) 10.9 th/mm3 (1.8-7.7); Neut % (Auto) 85.1 % (16.0-70.0); Platelet Count 148 th/mm3 (150-450); Red Blood Count 4.01 mil/mm3 (4.00-5.30); Red Cell Distribution Width 14.2 % (11.6-17.2); White Blood Count 12.8 th/mm3 (4.0-11.0)
[2018-06-09] MEDS: Senna/Docusate Sodium 8.6/50 MG Tablet PO SCH ×2 (08:07→20:46)
[2018-06-09 08:14] LABS: Alanine Aminotransferase 141 U/L (10-53); Albumin 2.2 g/dL (3.4-5.0); Alkaline Phosphatase 101 U/L (45-117); Anion Gap 12 meq/L (5-15); Aspartate Aminotransferase 86 U/L (15-37); Blood Urea Nitrogen 10 mg/dL (7-18); Calcium 7.7 mg/dL (8.5-10.1); Carbon Dioxide 25.7 meq/L (21.0-32.0); Chloride 105 meq/L (98-107); Glomerular Filtration Rate Greater Than 89 mL/min (>89); Glucose,Random 106 mg/dL (74-106); Lipase 79 U/L (73-393); Sodium 143 meq/L (136-145); Total Protein 5.8 g/dL (6.4-8.2)
[2018-06-09 08:51] LABS: Monocytes 7 % (0-8); Toxic Vacuolation Present
[2018-06-09 08:52] LABS: Platelet Morphology Normal (Normal); Potassium 2.8 meq/L (3.5-5.1)
--- NOTE | 2018-06-09 10:57 | P.PNIM ---
Subjective Interval history: Abdominal pain is still present this morning. Patient says her current pain treatments are not controlling pain. HIDA scan will be helpful but at this point patient has too much pain to stop narcotics. Etiology for the pain appears to be pancreatitis based on imaging. Because of the pancreatitis could be related to ERCP as the specific pain she is experiencing came directly after an ERCP. Physical Exam Vital signs: Vital Signs 06/08/18 18:49 06/08/18 20:15 06/08/18 20:19 Temperature 98 F Pulse Rate 83 72 74 Respiratory Rate 22 18 Blood Pressure 134/75 141/78 H Pulse Oximetry 96 94 L 06/08/18 23:37 06/09/18 00:30 06/09/18 00:55 Temperature 98.0 F Pulse Rate 74 70 75 Respiratory Rate 14 16 18 Blood Pressure 145/83 H 134/76 147/85 H Pulse Oximetry 96 95 95 06/09/18 04:00 06/09/18 08:00 Temperature 97.6 F 98.3 F Pulse Rate 93 H 87 Respiratory Rate 20 18 Blood Pressure 134/73 137/72 Pulse Oximetry 94 L 91 L Intake & Output 06/08/18 06/09/18 06/09/18 18:59 06:59 18:59 Intake Total 2200 / 2200 Balance 2200 / 2200 Weight 59.6 kg Intake: IV 2200 / 2200 LR 1000 mL Inj 1,000 ML @ 125 1000 / 1000 mls/hr IV.CONT .Q8H THOMAS Rx#: [id number] Zosyn 4.5 GM Premix 4.5 gm In 200 / 200 100 ml @ 200 mls/hr IV.SIG Q6H THOMAS Rx#:[id number] NS Inj 1,000 ML @ Wide Open IV. 1000 / 1000 SIG BOLUS ONE Rx#:[id number] Other: # Voids 3 2 Date of Last Bowel Movement 06/08/18 06/08/18 Narrative: GENERAL: NAD, A&Ox3 HEAD: Normocephalic. NECK: Supple, trachea midline. No lymphadenopathy. EYES: No scleral icterus. No injection or drainage. CARDIOVASCULAR: Regular rate and rhythm without murmurs, gallops, or rubs. RESPIRATORY: Breath sounds equal bilaterally. No accessory muscle use. GASTROINTESTINAL: Abdomen soft, nondistended. Diffuse tenderness of the abdomen is present with the focus at the epigastrium. Hypoactive bowel sounds. MUSCULOSKELETAL: No cyanosis, or edema. SKIN: Warm and dry. NEURO: No focal neurological deficits. Results - Labs CBC & Chem 7: 06/09/18 05:20 06/09/18 05:20 Laboratory Results - last 24 hr 06/08/18 06/08/18 06/09/18 20:20 20:25 05:20 WBC 13.8 H 12.8 H RBC 4.36 4.01 Hgb 13.5 12.5 Hct 40.9 37.8 MCV 93.7 94.4 MCH 30.9 31.2 MCHC 33.0 33.1 RDW 13.9 14.2 Plt Count 159 148 L MPV 10.2 10.9 Prelim Diff (Auto) Slide review pending Slide review pending Neut % (Auto) 83.9 H 85.1 H Lymph % (Auto) 7.5 L 5.8 L [place] % (Auto) 8.4 H 8.8 H Eos % (Auto) 0.1 0.2 Baso % (Auto) 0.1 0.1 Neut # (Auto) 11.6 H 10.9 H Lymph # (Auto) 1.0 0.7 L [place] # (Auto) 1.2 H 1.1 H Eos # (Auto) 0.0 0.0 Baso # (Auto) 0.0 0.0 WBC Differential . Manual diff final Diff Scan Auto diff confirmed Seg Neuts % (Manual) 80 H Band Neuts % (Manual) 13 H Monocytes % (Manual) 7 Abs Neuts (Manual) 11.9 H Differential Comment . . Toxic Vacuolation Present H Platelet Estimate Normal Low L Platelet Morphology Normal Normal Sodium 140 Potassium 3.5 Chloride 104 Carbon Dioxide 26.9 Anion Gap 9 BUN 11 Creatinine 0.51 Estimated GFR Greater than 89 Random Glucose 118 H Calcium 7.8 L Total Bilirubin 1.3 H AST 198 H ALT 180 H Alkaline Phosphatase 110 Total Protein 6.1 L Albumin 2.4 L Lipase 98 06/09/18 05:20 WBC RBC Hgb Hct MCV MCH MCHC RDW Plt Count MPV Prelim Diff (Auto) Neut % (Auto) Lymph % (Auto) [place] % (Auto) Eos % (Auto) Baso % (Auto) Neut # (Auto) Lymph # (Auto) [place] # (Auto) Eos # (Auto) Baso # (Auto) WBC Differential Diff Scan Seg Neuts % (Manual) Band Neuts % (Manual) Monocytes % (Manual) Abs Neuts (Manual) Differential Comment Toxic Vacuolation Platelet Estimate Platelet Morphology Sodium 143 Potassium 2.8 L* Chloride 105 Carbon Dioxide 25.7 Anion Gap 12 BUN 10 Creatinine 0.34 L Estimated GFR Greater than 89 Random Glucose 106 Calcium 7.7 L Total Bilirubin 0.7 AST 86 H ALT 141 H Alkaline Phosphatase 101 Total Protein 5.8 L Albumin 2.2 L Lipase 79 - Imaging Impressions Abdomen/Pelvis CT 06/08/18 20:11 CONCLUSION: 1. Very prominent inflammatory change seen around the pancreas consistent with acute pancreatitis. 2. The patient is status post cholecystectomy. There is persistent biliary duct dilatation. 3. Hepatic steatosis. 4. Bilateral lower lobe atelectasis or consolidation being worse on the left with bilateral pleural effusions being worse on the left. Assessment and Plan - Assessment (1) Pancreatitis Code(s): K85.90 - Acute pancreatitis without necrosis or infection, unspecified Status: Acute (2) Intractable abdominal pain Code(s): R10.9 - Unspecified abdominal pain Status: Acute (3) S/P laparoscopic cholecystectomy Code(s): Z90.49 - Acquired absence of other specified parts of digestive tract Status: Acute - Plan 63-year-old female admitted secondary to acute pancreatitis which appears to potentially be related to ERCP Pancreatitis Irretractable abdominal pain No signs of infection May be post ERCP pancreatitis Adjust pain treatments for control Start steroids for inflammation IV hydration Status post lap cholecystectomy No evidence that this is a postop complication at this point Follow clinically DVT prophylaxis SCDs
[2018-06-09] MEDS ORDERED: MethylPREDNISolone Sod Succinate Inj 40 MG/ML Vial IV.PUSH ONE (11:00)
[2018-06-09] MEDS: oxyCODONE/Acetaminophen 10/325 Tablet PO PRN ×3 (11:44→20:47)
[2018-06-09] MEDS: MethylPREDNISolone Sod Succinate Inj 40 MG/ML Vial IV.PUSH SCH (20:46)
[2018-06-10] MEDS: Piperacil/Tazo 4.5 GM Premix 4.5 GM/100 ML BAG IV.SIG SCH ×4 (00:56→19:33)
[2018-06-10] MEDS: oxyCODONE/Acetaminophen 10/325 Tablet PO PRN ×5 (00:56→22:55)
[2018-06-10] MEDS: Senna/Docusate Sodium 8.6/50 MG Tablet PO SCH ×2 (09:57→22:54)
[2018-06-10] MEDS: MethylPREDNISolone Sod Succinate Inj 40 MG/ML Vial IV.PUSH SCH ×2 (09:58→22:20)
[2018-06-10 11:02] LABS: Baso % (Auto) 0.2 % (0.0-2.0); Eos % (Auto) 0.1 % (0.0-4.0); Hematocrit 41.3 % (35.0-46.0); Hemoglobin 13.7 gm/dL (11.6-15.3); Lymph % (Auto) 7.8 % (9.0-44.0); Mean Corpuscular HGB Conc 33.2 % (32.0-36.0); Mean Corpuscular Hemoglobin 31.2 pg (27.0-34.0); Mean Corpuscular Volume 94.2 fL (80.0-100.0); Mean Platelet Volume 10.6 fL (7.0-11.0); Mono # (Auto) 1.7 th/mm3 (0.0-0.9); Neut # (Auto) 10.3 th/mm3 (1.8-7.7); Neut % (Auto) 78.9 % (16.0-70.0); Platelet Count 167 th/mm3 (150-450); Red Blood Count 4.39 mil/mm3 (4.00-5.30); Red Cell Distribution Width 13.9 % (11.6-17.2); White Blood Count 13.1 th/mm3 (4.0-11.0)
[2018-06-10 11:15] LABS: Alanine Aminotransferase 99 U/L (10-53); Albumin 2.3 g/dL (3.4-5.0); Anion Gap 9 meq/L (5-15); Aspartate Aminotransferase 43 U/L (15-37); Blood Urea Nitrogen 15 mg/dL (7-18); Calcium 7.9 mg/dL (8.5-10.1); Carbon Dioxide 29.1 meq/L (21.0-32.0); Chloride 106 meq/L (98-107); Glomerular Filtration Rate Greater Than 89 mL/min (>89); Glucose,Random 154 mg/dL (74-106); Lipase 61 U/L (73-393); Potassium 3.5 meq/L (3.5-5.1)
[2018-06-10 11:17] LABS: Alkaline Phosphatase 128 U/L (45-117)
[2018-06-10 11:19] LABS: Sodium 144 meq/L (136-145)
--- NOTE | 2018-06-10 11:29 | P.PNIM ---
Subjective Interval history: Pain has improved through time. Patient has not yet able to come off pain medications for repeat of her HIDA scan. With clinical improvement I do not mind waiting for her HIDA scan. My hope is that by the time she stable enough to get a HIDA scan she will have resolution of any findings that may be present. Pancreatic enzymes remain stable. Her transaminitis has decreased through time. Physical Exam Vital signs: Vital Signs 06/09/18 12:00 06/09/18 15:05 06/09/18 16:00 Temperature 98 F 98.1 F Pulse Rate 68 87 84 Respiratory Rate 16 18 Blood Pressure 136/74 152/96 H Pulse Oximetry 93 L 91 L 06/09/18 19:47 06/09/18 22:25 06/10/18 00:00 Temperature 97.5 F L Pulse Rate 80 69 Respiratory Rate 18 Blood Pressure 139/73 140/68 Pulse Oximetry 92 L 90 L 06/10/18 00:28 06/10/18 04:00 06/10/18 09:09 Temperature 97.9 F 98.2 F Pulse Rate 63 73 58 L Respiratory Rate 18 16 Blood Pressure 128/70 117/68 Pulse Oximetry 92 L 94 L Intake & Output 06/09/18 06/10/18 06/10/18 18:59 06:59 18:59 Intake Total 1100 / 1100 1300 / 1300 1000 / 1000 Balance 1100 / 1100 1300 / 1300 1000 / 1000 Weight 59.6 kg Intake: IV 1100 / 1100 1300 / 1300 1000 / 1000 LR 1000 mL Inj 1,000 ML @ 125 1000 / 1000 1000 / 1000 1000 / 1000 mls/hr IV.CONT .Q8H [facility] Rx#: [id number] Zosyn 4.5 GM Premix 4.5 gm In 100 / 100 300 / 300 100 ml @ 200 mls/hr IV.SIG Q6H [facility] Rx#:[id number] Other: # Voids 2 2 Date of Last Bowel Movement 06/08/18 06/09/18 06/10/18 Narrative: GENERAL: NAD, A&Ox3 HEAD: Normocephalic. NECK: Supple, trachea midline. No lymphadenopathy. EYES: No scleral icterus. No injection or drainage. CARDIOVASCULAR: Regular rate and rhythm without murmurs, gallops, or rubs. RESPIRATORY: Breath sounds equal bilaterally. No accessory muscle use. GASTROINTESTINAL: Abdomen soft, nondistended. Diffuse tenderness of the abdomen is present with the focus at the epigastrium. Hypoactive bowel sounds. MUSCULOSKELETAL: No cyanosis, or edema. SKIN: Warm and dry. NEURO: No focal neurological deficits. Results - Labs CBC & Chem 7: 06/10/18 10:40 06/10/18 10:40 Laboratory Results - last 24 hr 06/09/18 06/10/18 06/10/18 14:20 10:40 10:40 WBC 13.1 H RBC 4.39 Hgb 13.7 Hct 41.3 MCV 94.2 MCH 31.2 MCHC 33.2 RDW 13.9 Plt Count 167 MPV 10.6 Prelim Diff (Auto) Slide review pending Neut % (Auto) 78.9 H Lymph % (Auto) 7.8 L [place] % (Auto) 13.0 H Eos % (Auto) 0.1 Baso % (Auto) 0.2 Neut # (Auto) 10.3 H Lymph # (Auto) 1.0 [place] # (Auto) 1.7 H Eos # (Auto) 0.0 Baso # (Auto) 0.0 Differential Comment . Hematology Comments Sodium 144 Potassium 3.1 L 3.5 Chloride 106 Carbon Dioxide 29.1 Anion Gap 9 BUN 15 Creatinine 0.50 Estimated GFR Greater than 89 Random Glucose 154 H Calcium 7.9 L Total Bilirubin 0.6 AST 43 H ALT 99 H Alkaline Phosphatase 128 H Total Protein 6.0 L Albumin 2.3 L Lipase 61 L Assessment and Plan - Assessment (1) Pancreatitis Code(s): K85.90 - Acute pancreatitis without necrosis or infection, unspecified Status: Acute (2) Intractable abdominal pain Code(s): R10.9 - Unspecified abdominal pain Status: Acute (3) S/P laparoscopic cholecystectomy Code(s): Z90.49 - Acquired absence of other specified parts of digestive tract Status: Acute - Plan 63-year-old female admitted secondary to acute pancreatitis which appears to potentially be related to ERCP Improving through time. Continue pain treatments. Plan for HIDA scan once patient's pain improved further. Monitor lipase. Monitor transaminitis. Labs ordered for further monitoring. Pancreatitis Irretractable abdominal pain No signs of infection May be post ERCP pancreatitis Adjust pain treatments for control Start steroids for inflammation IV hydration Status post lap cholecystectomy No evidence that this is a postop complication at this point Follow clinically DVT prophylaxis SCDs
[2018-06-10] MEDS: Morphine Inj 4 MG/ML Vial IV.PUSH PRN (11:49)
[2018-06-10 11:50] LABS: Lymphocytes 15 % (9-44); Metamyelocytes 1 % (0-1); Monocytes 8 % (0-8); RBC Morphology Normal (Normal); Toxic Granulation 2+
[2018-06-10 11:51] LABS: Platelet Estimate Normal (Normal)
[2018-06-10] MEDS: Temazepam 15 MG Capsule PO PRN (22:57)
[2018-06-11] MEDS: oxyCODONE/Acetaminophen 10/325 Tablet PO PRN ×3 (02:51→16:30)
[2018-06-11] MEDS: Piperacil/Tazo 4.5 GM Premix 4.5 GM/100 ML BAG IV.SIG SCH ×4 (02:55→17:12)
[2018-06-11] MEDS: MethylPREDNISolone Sod Succinate Inj 40 MG/ML Vial IV.PUSH SCH ×2 (10:27→20:55)
[2018-06-11] MEDS: Senna/Docusate Sodium 8.6/50 MG Tablet PO SCH ×2 (10:30→20:54)
--- NOTE | 2018-06-11 11:06 | P.PNIM ---
Subjective Interval history: Abdominal pain is still present. Patient still needing breakthrough IV morphine for pain control. HIDA scan plan today. Physical Exam Vital signs: Vital Signs 06/10/18 12:07 06/10/18 13:14 06/10/18 13:17 Temperature 98.4 F Pulse Rate 75 85 81 Respiratory Rate 16 Blood Pressure 123/77 Pulse Oximetry 90 L 06/10/18 16:23 06/10/18 20:00 06/11/18 00:00 Temperature 97.9 F 97.6 F 98.3 F Pulse Rate 81 72 76 Respiratory Rate 18 18 18 Blood Pressure 158/80 H 143/87 H 120/80 Pulse Oximetry 91 L 96 94 L 06/11/18 04:00 06/11/18 04:56 06/11/18 08:00 Temperature 98 F 98.4 F Pulse Rate 68 61 75 Respiratory Rate 18 20 Blood Pressure 127/75 126/68 Pulse Oximetry 94 L 91 L 06/11/18 09:00 Temperature Pulse Rate 107 H Respiratory Rate Blood Pressure Pulse Oximetry Intake & Output 06/10/18 06/11/18 06/11/18 18:59 06:59 18:59 Intake Total 1000 / 1000 Balance 1000 / 1000 Weight 63.1 kg Intake: IV 1000 / 1000 LR 1000 mL Inj 1,000 ML @ 125 1000 / 1000 mls/hr IV.CONT .Q8H [facility] Rx#: [id number] Other: Date of Last Bowel Movement 06/10/18 06/11/18 # Bowel Movements 1 1 Narrative: GENERAL: NAD, A&Ox3 HEAD: Normocephalic. NECK: Supple, trachea midline. No lymphadenopathy. EYES: No scleral icterus. No injection or drainage. CARDIOVASCULAR: Regular rate and rhythm without murmurs, gallops, or rubs. RESPIRATORY: Breath sounds equal bilaterally. No accessory muscle use. GASTROINTESTINAL: Abdomen soft, nondistended. Diffuse tenderness of the abdomen is present with the focus at the epigastrium. Hypoactive bowel sounds. MUSCULOSKELETAL: No cyanosis, or edema. SKIN: Warm and dry. NEURO: No focal neurological deficits. Results - Labs CBC & Chem 7: 06/10/18 10:40 06/10/18 10:40 Laboratory Results - last 24 hr 06/10/18 06/10/18 10:40 10:40 WBC Differential Manual diff final Seg Neuts % (Manual) 66 Band Neuts % (Manual) 10 H Lymphocytes % (Manual) 15 Monocytes % (Manual) 8 Metamyelocytes % (Man) 1 Abs Neuts (Manual) 10.1 H Toxic Granulation 2+ H Platelet Estimate Normal Platelet Morphology Enlarged H RBC Morphology Normal Sodium 144 Potassium 3.5 Chloride 106 Carbon Dioxide 29.1 Anion Gap 9 BUN 15 Creatinine 0.50 Estimated GFR Greater than 89 Random Glucose 154 H Calcium 7.9 L Total Bilirubin 0.6 AST 43 H ALT 99 H Alkaline Phosphatase 128 H Total Protein 6.0 L Albumin 2.3 L Lipase 61 L Assessment and Plan - Assessment (1) Pancreatitis Code(s): K85.90 - Acute pancreatitis without necrosis or infection, unspecified Status: Acute (2) Intractable abdominal pain Code(s): R10.9 - Unspecified abdominal pain Status: Acute (3) S/P laparoscopic cholecystectomy Code(s): Z90.49 - Acquired absence of other specified parts of digestive tract Status: Acute - Plan 63-year-old female admitted secondary to acute pancreatitis which appears to potentially be related to ERCP HIDA scan today. Continue to follow liver enzymes and lipase. Pain is still present. Pancreatitis Irretractable abdominal pain No signs of infection May be post ERCP pancreatitis Adjust pain treatments for control Start steroids for inflammation IV hydration Status post lap cholecystectomy No evidence that this is a postop complication at this point Follow clinically DVT prophylaxis SCDs
--- NOTE | 2018-06-11 12:29 | NM ---
EXAM DATE: 06/11/2018 12:21 PM EDT AGE/SEX: 63 years / Female INDICATIONS: Right upper quadrant pain for three days. CLINICAL DATA: This is the patient's initial encounter. Patient reports that signs and symptoms have been present for 3 days and indicates a pain score of 8/10. MEDICAL/SURGICAL HISTORY: None. Cholecystectomy. COMPARISON: [facility] [place], CT ABDOMEN & PELVIS W CONTRAST, 06/08/2018. . No external comparison. DOSE: 4.1 mCi Tc-99m mebrofenin i.v. Medication: 1.26 mcg Cholecystokinin IV No symptomatic response Cholecystokinin was administered by slow infusion over 8 minutes beginning at 30 min lita carol. TECHNIQUE: Following the intravenous administration of radiotracer, dynamic sequential images were pe rformed with continuous acquisition. Time-activity curves were generated. FINDINGS: Hepatic Kinetics: There is prompt uptake of radiotracer in the liver. No focal defects are seen. Ther e is normal rate of washout from the hepatic parenchyma. Biliary Clearance: Activity is first seen in the extrahepatic biliary system at 20 minutes. There is normal excretion into the small bowel. Gallbladder: Surgically absent. Post-CCK: No symptomatic response after cholecystokinin infusion. Biliary-Enteric Reflux: None observed. CONCLUSION: Normal hepatobiliary scan appearance post cholecystectomy. Electronically signed by: Eric Carr MD 06/11/2018 12:28 PM EDT
[2018-06-11] MEDS: Morphine Inj 4 MG/ML Vial IV.PUSH PRN (12:58)
[2018-06-11 14:37] LABS: Baso % (Auto) 0.1 % (0.0-2.0); Eos % (Auto) 0.1 % (0.0-4.0); Hematocrit 40.8 % (35.0-46.0); Hemoglobin 13.5 gm/dL (11.6-15.3); Lymph # (Auto) 0.7 th/mm3 (1.0-4.8); Mean Corpuscular HGB Conc 33.1 % (32.0-36.0); Mean Corpuscular Hemoglobin 30.9 pg (27.0-34.0); Mean Corpuscular Volume 93.4 fL (80.0-100.0); Mean Platelet Volume 10.3 fL (7.0-11.0); Mono # (Auto) 1.5 th/mm3 (0.0-0.9); Mono % (Auto) 10.2 % (0.0-8.0); Neut # (Auto) 12.7 th/mm3 (1.8-7.7); Neut % (Auto) 84.6 % (16.0-70.0); Platelet Count 213 th/mm3 (150-450); Red Blood Count 4.37 mil/mm3 (4.00-5.30); Red Cell Distribution Width 13.9 % (11.6-17.2)
[2018-06-11 15:03] LABS: Albumin 2.1 g/dL (3.4-5.0); Anion Gap 13 meq/L (5-15); Aspartate Aminotransferase 64 U/L (15-37); Blood Urea Nitrogen 15 mg/dL (7-18); Calcium 7.9 mg/dL (8.5-10.1); Carbon Dioxide 27.4 meq/L (21.0-32.0); Chloride 100 meq/L (98-107); Glomerular Filtration Rate Greater Than 89 mL/min (>89); Glucose,Random 150 mg/dL (74-106); Lipase 110 U/L (73-393); Potassium 3.1 meq/L (3.5-5.1); Sodium 140 meq/L (136-145)
[2018-06-11 15:07] LABS: Alanine Aminotransferase 84 U/L (10-53); Alkaline Phosphatase 244 U/L (45-117); Total Protein 5.7 g/dL (6.4-8.2)
[2018-06-11 15:22] LABS: Eosinophils 1 % (0-4); Lymphocytes 4 % (9-44); Monocytes 7 % (0-8); Myelocytes 1 % (0-0); Tallied Nucleated RBC 1 (0-0)
[2018-06-11 15:23] LABS: Platelet Estimate Normal (Normal); Platelet Morphology Normal (Normal); Toxic Granulation 1+
[2018-06-12] MEDS: Piperacil/Tazo 4.5 GM Premix 4.5 GM/100 ML BAG IV.SIG SCH ×2 (01:36→06:23)
[2018-06-12 07:13] LABS: Baso % (Auto) 0.1 % (0.0-2.0); Eos % (Auto) 0.2 % (0.0-4.0); Hematocrit 36.6 % (35.0-46.0); Hemoglobin 12.1 gm/dL (11.6-15.3); Lymph # (Auto) 1.2 th/mm3 (1.0-4.8); Lymph % (Auto) 9.1 % (9.0-44.0); Mean Corpuscular HGB Conc 33.2 % (32.0-36.0); Mean Corpuscular Hemoglobin 30.8 pg (27.0-34.0); Mean Corpuscular Volume 92.9 fL (80.0-100.0); Mean Platelet Volume 10.6 fL (7.0-11.0); Mono # (Auto) 1.4 th/mm3 (0.0-0.9); Mono % (Auto) 10.8 % (0.0-8.0); Neut # (Auto) 10.1 th/mm3 (1.8-7.7); Neut % (Auto) 79.8 % (16.0-70.0); Platelet Count 198 th/mm3 (150-450); Red Blood Count 3.94 mil/mm3 (4.00-5.30); Red Cell Distribution Width 14.2 % (11.6-17.2); White Blood Count 12.7 th/mm3 (4.0-11.0)
[2018-06-12 07:56] LABS: Albumin 1.9 g/dL (3.4-5.0); Anion Gap 10 meq/L (5-15); Aspartate Aminotransferase 31 U/L (15-37); Blood Urea Nitrogen 11 mg/dL (7-18); Calcium 7.5 mg/dL (8.5-10.1); Chloride 103 meq/L (98-107); Glomerular Filtration Rate Greater Than 89 mL/min (>89); Glucose,Random 143 mg/dL (74-106); Potassium 3.6 meq/L (3.5-5.1); Sodium 141 meq/L (136-145)
[2018-06-12 07:59] LABS: Alanine Aminotransferase 64 U/L (10-53); Alkaline Phosphatase 190 U/L (45-117); Total Protein 5.4 g/dL (6.4-8.2)
[2018-06-12] MEDS: oxyCODONE/Acetaminophen 10/325 Tablet PO PRN (08:57)
[2018-06-12] MEDS: MethylPREDNISolone Sod Succinate Inj 40 MG/ML Vial IV.PUSH SCH (08:58)
--- NOTE | 2018-06-12 12:00 | P.DS ---
Date of admission: 06/08/18 23:41 Primary care physician: Santiago Stewart DO Brief History from admission: This is a 63-year-old female with no significant PMH presents the ER with complaints of severe abdominal pain x2 days. Recent admit 06/03-06/07/18 for c/o abdominal pain, s/p ERCP w/ stent placement on 06/04/18 and Lap Sammi on 06/06/[address] Lion. Had been doing well postop until last night when she started to have acute onset abdominal pain. Notes epigastric and RLQ pain, severe, 10/ 10, non-radiating, associated w/ nausea, no vomiting or diarrhea. Normal BM. On arrival, BP 145/83, HR 74, O2 sat 96% on RA, Afebrile. WBC 13.8. Chemistry essentially unremarkable, LFTs mildly elevated. Lipase normal. CT Abdomen/ Pelvis with very prominent inflammatory changes around the pancreas consistent with acute pancreatitis, status post cholecystectomy with persistent biliary ductal dilatation. S/p multiple doses of IV analgesics in ER w/ persistent pain. Dr. Jimenez consulted, no emergent surgical intervention needed at this time, will see in consultation. DS: Diagnosis - Discharge Diagnosis (1) Pancreatitis Status: Acute (2) Intractable abdominal pain Status: Acute (3) S/P laparoscopic cholecystectomy Status: Acute DS: Medications - Discharge Medications Prescriptions: oxycodone-acetaminophen [Percocet] 1 tab PO Q4-6H PRN #20 tab PRN Reason: Pain 3 to 10 DS: Summary Hospital Course: Mrs. Cai is a 63 year old female. She was admitted secondary to pancreatitis ( seen on CT). Pancreatitis could be related to previous and recent cholecystectomy and ERCP. Patient was treated with hydration, pain medications , and steroids and has gradually had improvement. She shows signs of improvement clinically. She is also having gradual improvement in her LFTs. At this point her pain is controlled with p.o. treatments and she is medically stable and cleared for discharge to home today. - Time Spent with Patient Total time spent providing and/or coordinating discharge services: - Quality: VTE Deep Vein Thrombosis/Pulmonary Embolism Present on Admission: No Exam Vital signs: Vital Signs 06/11/18 13:24 06/11/18 16:00 06/11/18 20:00 Temperature 98.8 F 98.1 F Pulse Rate 99 H 83 83 Respiratory Rate 20 20 Blood Pressure 129/74 147/74 H Pulse Oximetry 94 L 94 L 06/12/18 00:00 06/12/18 04:00 06/12/18 09:27 Temperature 98.6 F 97.7 F 98.6 F Pulse Rate 73 72 69 Respiratory Rate 20 20 16 Blood Pressure 144/80 H 144/82 H 168/79 H Pulse Oximetry 95 92 L 96 Intake & Output 06/11/18 06/12/18 06/12/18 18:59 06:59 18:59 Intake Total 200 / 200 1160 / 1160 Balance 200 / 200 1160 / 1160 Weight 63 kg Intake: IV 200 / 200 1100 / 1100 LR 1000 mL Inj 1,000 ML @ 125 1000 / 1000 mls/hr IV.CONT .Q8H [facility] Rx#: [id number] Zosyn 4.5 GM Premix 4.5 gm In 200 / 200 100 / 100 100 ml @ 200 mls/hr IV.SIG Q6H [facility] Rx#:[id number] Oral 60 / 60 Other: # Voids 1 Date of Last Bowel Movement 06/11/18 # Bowel Movements 1 Results Procedures completed during hospitalization: HIDA scan Labs on day of discharge: Labs from last 24 hours 06/12/18 06/12/18 06/11/18 06:21 06:21 13:45 WBC 12.7 H RBC 3.94 L Hgb 12.1 Hct 36.6 MCV 92.9 MCH 30.8 MCHC 33.2 RDW 14.2 Plt Count 198 MPV 10.6 Prelim Diff (Auto) Neut % (Auto) 79.8 H Lymph % (Auto) 9.1 [place] % (Auto) 10.8 H Eos % (Auto) 0.2 Baso % (Auto) 0.1 Neut # (Auto) 10.1 H Lymph # (Auto) 1.2 [place] # (Auto) 1.4 H Eos # (Auto) 0.0 Baso # (Auto) 0.0 WBC Differential . Seg Neuts % (Manual) Band Neuts % (Manual) Lymphocytes % (Manual) Monocytes % (Manual) Eosinophils % (Manual) Myelocytes % (Man) Abs Neuts (Manual) Nucleated RBCs/100 WBC Differential Comment Auto diff final Toxic Granulation Platelet Estimate Platelet Morphology Sodium 141 140 Potassium 3.6 3.1 L Chloride 103 100 Carbon Dioxide 28.0 27.4 Anion Gap 10 13 BUN 11 15 Creatinine 0.41 L 0.40 L Estimated GFR Greater than 89 Greater than 89 Random Glucose 143 H 150 H Calcium 7.5 L 7.9 L Total Bilirubin 0.5 0.9 AST 31 64 H ALT 64 H 84 H Alkaline Phosphatase 190 H 244 H Total Protein 5.4 L 5.7 L Albumin 1.9 L 2.1 L Lipase 110 06/11/18 13:45 WBC 15.0 H RBC 4.37 Hgb 13.5 Hct 40.8 MCV 93.4 MCH 30.9 MCHC 33.1 RDW 13.9 Plt Count 213 MPV 10.3 Prelim Diff (Auto) Slide review pending Neut % (Auto) 84.6 H Lymph % (Auto) 5.0 L [place] % (Auto) 10.2 H Eos % (Auto) 0.1 Baso % (Auto) 0.1 Neut # (Auto) 12.7 H Lymph # (Auto) 0.7 L [place] # (Auto) 1.5 H Eos # (Auto) 0.0 Baso # (Auto) 0.0 WBC Differential Manual diff final Seg Neuts % (Manual) 85 H Band Neuts % (Manual) 2 Lymphocytes % (Manual) 4 L Monocytes % (Manual) 7 Eosinophils % (Manual) 1 Myelocytes % (Man) 1 H Abs Neuts (Manual) 13.2 H Nucleated RBCs/100 WBC 1 H Differential Comment . Toxic Granulation 1+ H Platelet Estimate Normal Platelet Morphology Normal Sodium Potassium Chloride Carbon Dioxide Anion Gap BUN Creatinine Estimated GFR Random Glucose Calcium Total Bilirubin AST ALT Alkaline Phosphatase Total Protein Albumin Lipase - Impressions ITS Impressions Abdomen/Pelvis CT 06/08/18 20:11 CONCLUSION: 1. Very prominent inflammatory change seen around the pancreas consistent with acute pancreatitis. 2. The patient is status post cholecystectomy. There is persistent biliary duct dilatation. 3. Hepatic steatosis. 4. Bilateral lower lobe atelectasis or consolidation being worse on the left with bilateral pleural effusions being worse on the left. Bile Acid Absorption NM 06/11/18 00:00 CONCLUSION: Normal hepatobiliary scan appearance post cholecystectomy. Discharge Plan - Discharge Disposition Patient Disposition: 01 Discharge Home - Discharge Condition Condition: Stable - Discharge Order Discharge Orders: Discharge Order (Routine); Ordered 06/12/18 Ordered By: Mayur Grimm - Discharge Details Anticipated Discharge Date: 06/12/18 - Physicians Team Primary Care Provider: Santiago Stewart Attending Provider: Mayur Grimm
== END 2018-06-12 12:00 | disposition home or self-care (01) ==
LOC: NEPC 18:20 → NEDA 23:41 → N05 06-09 00:46
PROVIDERS: ADMIT Hospitalist; ATTEND Hospitalist
DX: R74.0 Nonspecific elevation of levels of transaminase and lactic acid dehydrogenase [LDH]; K76.0 Fatty (change of) liver, not elsewhere classified; K85.90 Acute pancreatitis without necrosis or infection, unspecified; F17.210 Nicotine dependence, cigarettes, uncomplicated; K80.13 Calculus of gallbladder with acute and chronic cholecystitis with obstruction; M47.9 Spondylosis, unspecified; K83.8 Other specified diseases of biliary tract; R11.2 Nausea with vomiting, unspecified; K21.9 Gastro-esophageal reflux disease without esophagitis; R93.8 Abnormal findings on diagnostic imaging of other specified body structures; R74.8 Abnormal levels of other serum enzymes